=== PATIENT | male | born 1930 | race Caucasian/White ===

== ENCOUNTER 2016-12-13 19:53 | Inpatient (IN) | payer MEDICARE, OTHER ==
[~2016-12-13] VITALS: Ht 188 cm; Wt 81.8 kg
[2016-12-13 21:00] VITALS: BP 204/94; PULSE 56; RESP 16; Ht 188 cm; Wt 81.8 kg
[2016-12-13] MEDS ORDERED: BISACODYL 10 MG SUPP PR PRN (23:30)
[2016-12-13] MEDS ORDERED: ACETAMINOPHEN 325 MG TAB PO PRN (23:30)
[2016-12-13 23:40] VITALS: BP 217/94; PULSE 54; RESP 16
[2016-12-13] MEDS: ATORVASTATIN 40 MG TAB PO SCH (23:41)
[2016-12-13] MEDS: DOCUSATE SODIUM 100 MG CAP PO SCH (23:41)
[2016-12-13] MEDS: APIXABAN 5 MG TABLET PO SCH (23:42)
[2016-12-13] MEDS: SENNA TAB PO SCH (23:43)
[2016-12-13 23:59] LABS: ADD UMIC YES; UR ASCORBIC ACID NEGATIVE (NEGATIVE); UR BILIRUBIN (Dip) NEGATIVE (NEGATIVE); UR BLOOD (Dip) NEGATIVE (NEGATIVE); UR CLARITY CLEAR (CLEAR); UR COLOR STRAW (YELLOW); UR GLUCOSE (Dip) NEGATIVE (NEGATIVE); UR KETONES (Dip) NEGATIVE (NEGATIVE); UR LEUKOCYTE ESTERASE (Dip) NEGATIVE Leu/ul (NEGATIVE); UR NITRITE (Dip) NEGATIVE (NEGATIVE); UR RBC 2 /HPF (0-5); UR SPECIFIC GRAVITY (Dip) 1.009 (1.003-1.030); UR TOTAL PROTEIN (Dip) 1+ mg/dl (NEGATIVE); UR UROBILINOGEN (Dip) NEGATIVE (NEGATIVE)
[2016-12-14] VITALS (9 sets, daily range): BP systolic 158–206; BP diastolic 71–91; PULSE 52–64; RESP 16–20
[2016-12-14 06:27] LABS: BASOPHIL # 0.1 10^3/ul (0.0-0.1); BASOPHILS % 1.3 % (0.0-2.0); EOSINOPHILS # 0.2 10^3/ul (0.0-0.5); EOSINOPHILS % 3.8 % (0.0-7.0); HEMATOCRIT 28.1 % (42.0-52.0); HEMOGLOBIN 9.2 g/dl (14.0-18.0); LYMPHOCYTES # 0.9 10^3/ul (0.8-2.9); MEAN CORPUSCULAR HEMOGLOBIN 30.8 pg (29.0-33.0); MEAN CORPUSCULAR HGB CONC 32.7 g/dl (32.0-37.0); MEAN PLATELET VOLUME 10.4 fl (7.4-10.4); MONOCYTE # 0.6 10^3/ul (0.3-0.9); MONOCYTES % 12.2 % (0.0-11.0); NEUTROPHIL # 2.9 10^3/ul (1.6-7.5); NEUTROPHILS % 63.3 % (39.0-77.0); PLATELET COUNT 128 10^3/UL (140-415); RED BLOOD COUNT 2.99 10^6/ul (4.70-6.10); WHITE BLOOD COUNT 4.5 10^3/ul (4.8-10.8)
[2016-12-14 06:50] LABS: ALBUMIN 3.2 g/dl (3.3-4.9); ALBUMIN/GLOBULIN RATIO 1.33; BILIRUBIN,INDIRECT 0.1 mg/dl (0-1.1); BILIRUBIN,TOTAL 0.1 mg/dl (0.2-1.3); CREATININE 2.28 mg/dl (0.61-1.24); POTASSIUM 4.1 mmol/L (3.5-5.1); TOTAL PROTEIN 5.6 g/dl (6.1-8.1)
[2016-12-14] MEDS: LEVOTHYROXINE 25 MCG TAB PO SCH (07:03)
[2016-12-14] MEDS ORDERED: CO Q10 PO SCH ×2 (09:00)
[2016-12-14] MEDS: FINASTERIDE 5 MG TAB PO SCH (09:00)
[2016-12-14] MEDS: CALCITRIOL 0.25 MCG CAP PO SCH (09:00)
[2016-12-14] MEDS: ATENOLOL 25 MG TAB PO SCH (09:00)
[2016-12-14] MEDS: CHOLECALCIFEROL 2,000 UNIT CAP PO SCH (09:00)
[2016-12-14] MEDS: AMLODIPINE 10 MG TAB PO SCH (09:00)
[2016-12-14] MEDS: DOCUSATE SODIUM 100 MG CAP PO SCH ×2 (09:57→20:31)
[2016-12-14] MEDS: APIXABAN 5 MG TABLET PO SCH ×2 (09:58→22:09)
[2016-12-14] MEDS: HYDROCHLOROTHIAZIDE 12.5 MG CAP PO SCH (09:59)
--- NOTE | 2016-12-14 10:20 | HP ---
DATE OF ADMISSION: 12/13/2016 CHIEF COMPLAINT: Acute cerebrovascular accident with right-sided weakness. HISTORY OF PRESENT ILLNESS: This is an 86-year-old male with a past medical history of chronic kidn ey disease, history of hypertension, history of BPH who presented to [facility] with com plaints of right upper extremity weakness. The patient, upon presentation, was noted to have a pers istent right hemiparesis, greater weakness in right upper extremity than lower. The patient was adm itted to [facility]. Neurologic workup included MRI which revealed multiple lacun ar type infarcts of the focal area, acute infarct in the left parietal region with a restricted diff usion. The patient was seen inpatient by a neurologist. The patient also, in hospital course, note d to have acute kidney injury on top of his underlying CKD and was followed by nephrology. The leslie ent, during the hospital course, also noted to have a DVT of his lower extremity, he was placed on a nticoagulation therapy. The patient was seen by oncology in the inpatient setting. Tamoxifen, whic h he had been taking for his underlying breast cancer, was discontinued. The patient, however, had a significant decrease in premorbid state prior to his admission, as a result was being transferred to [facility] for continued care. Upon my evaluation of the patient at this time, the patient noted to be hypertensive overnight, was given hydralazine and clonidine. The patient currently denies any fevers, chills, nausea, vomiting. PAST MEDICAL HISTORY: History of breast cancer status post mastectomy, history of chronic kidney di sease, history of anemia, history of AFib, history of BPH, history of duodenal ulcer, history of hyp ertension, history of thyroid disease. PAST SURGICAL HISTORY: The patient is status post mastectomy. ALLERGIES: PATIENT IS ALLERGIC TO PENICILLIN. FAMILY HISTORY: None. SOCIAL HISTORY: Does not drink, smoke or do drugs. MEDICATIONS: The patient's medications have been reviewed and reconciled. REVIEW OF SYSTEMS: A 14-point review of systems was conducted. Pertinent positives stated in HPI, otherwise negative. PHYSICAL EXAMINATION: VITAL SIGNS: Blood pressure is 158/71, respirations 16, pulse 54, temperature 97.5. HEENT: Head is normocephalic. NECK: Supple. HEART: Regular rate. LUNGS: Show diminished breath sounds at the base. ABDOMEN: Soft, nontender to palpation without rebound or guarding. EXTREMITIES: Negative for clubbing, cyanosis, no edema. DERMATOLOGIC: No rashes. MUSCULOSKELETAL: No joint effusions. NEUROLOGIC: No change in exam. MEDICATIONS: The patient's medications have been reviewed. LABORATORY DATA: Shows a sodium 144, potassium 4.1, BUN 40, creatinine 2.28, white count 4.5, hemog lobin 9.2, hematocrit 28.1, platelet count is 128. ASSESSMENT AND PLAN: This is an 86-year-old male who presents with: 1. Acute cerebrovascular accident on the left parietal area with right-sided weakness. Plan is to continue current medical management. Continue current blood pressure controlled. Continue Eliquis. Continue Lipitor. Continue physical therapy. Monitor closely. 2. Acute lower extremity deep venous thrombosis. Continue Eliquis. 3. Hypertension. The patient's blood pressure remained elevated. Will adjust blood pressure medic ations and allow for a gradual decline and blood pressure. The patient did have acute cerebrovascul ar accident and permissive hypertension is allowed in the first several days. Will monitor closely. 4. Atrial fibrillation, currently rate controlled. Continue medical management. Continue atenolol and Eliquis. 5. Benign prostatic hypertrophy. Continue Proscar. 6. Dyslipidemia. Continue statin therapy. 7. History of duodenal ulcer. Continue Protonix. 8. Hypothyroidism. Continue Synthroid. 9. Acute kidney injury on top of chronic kidney disease with unknown previous baseline creatinine. Etiology of acute kidney injury may be secondary to hemodynamics etiology of chronic kidney disease possibly due to hypertensive nephrosclerosis. Will continue to monitor renal function closely. Co ntinue supportive care, renally dose all medications, avoid nephrotoxins. 10. Mineral bone disorder. Continue Calcitriol. 11. Anemia. Monitor hemoglobin and hematocrit levels. Will give Epogen as needed. 12. Thrombocytopenia. Continue to monitor. 13. History of breast cancer status post mastectomy. The patient is currently off tamoxifen. Will monitor closely. Follow up with oncology outpatient setting. 14. Leukopenia and thrombocytopenia. Continue to monitor. Please note I spent up to 25 minutes [id number] time with the patient. The patient is FULL CODE. Dictated By: BAM WALKER/SHYANNE Conf#: [id number] DID#: [id number]
--- NOTE | 2016-12-14 14:01 | CONS ---
DATE OF ADMISSION: 12/13/2016 DATE OF CONSULTATION: 12/14/2016 TYPE OF CONSULTATION: Rehabilitation post-admission physician evaluation. REHABILITATION IMPAIRMENT CATEGORY: Left basal ganglia infarct cerebrovascular accident with right-sided weakness. ACTIVE COMORBIDITIES: 1. Anemia. 2. Atrial fibrillation. 3. BPH. 4. Duodenal ulcer. 5. Hypertension. 6. Hyperlipidemia. 7. Retinae disorder. 8. Thyroid dysfunction. 9. Dysphagia. 10. Left lower extremity deep venous thrombosis. 11. Impairments in self-care, mobility and cognition. HISTORY OF PRESENT ILLNESS: The patient is a pleasant 86-year-old right-handed gentleman who was admitted to an outside hospital with increased right-sided weakness and impairments in self-care and mobility. Workup did reveal left parietal basal ganglia lacunar infarct. The patient was also noted to have a left lower extremity deep venous thrombosis and started on anticoagulation. The patient was stabilized and cleared for transfer to the rehabilitation unit for comprehensive interdisciplinary rehab care. PAST MEDICAL HISTORY: 1. Duodenal ulcer. 2. Hypertension. 3. Hyperlipidemia. 4. BPH. 5. Retinal disorder. 6. Thyroid dysfunction. CURRENT MEDICATIONS: 1. Eliquis 1 tab p.o. b.i.d. 2. Hydralazine p.r.n. 3. Atenolol 12.5 mg p.o. daily. 4. Atorvastatin 40 mg p.o. at bedtime. 5. Cholecalciferol 2000 units p.o. daily. 6. Co-Q10 p.o. b.i.d. 7. Colace 200 mg p.o. b.i.d. 8. Hydrochlorothiazide 12.5 mg p.o. daily. 9. Levothyroxine 25 mcg p.o. daily. 10. Protonix 40 mg p.o. at bedtime. ALLERGIES: PENICILLIN. PHYSICAL EXAMINATION: VITAL SIGNS: He is currently afebrile with stable vital signs. HEENT: The extraocular motions appear intact. Oropharynx clear. NECK: Supple. LUNGS: Clear anteriorly. CARDIAC: S1, S2. ABDOMEN: Soft, nontender, positive bowel sounds. NEUROLOGIC: He is awake and alert. He is oriented to person and hospital. He will follow simple 1-step commands. He does have impaired short-term memory. He demonstrates antigravity strength in left upper and lower extremity. The right upper extremity with 3- strength, the right lower extremity with antigravity strength. Patient with impaired dynamic balance. PLAN: The patient has been admitted for comprehensive interdisciplinary acute rehab and is anticipated to tolerate 3 hours of daily therapy in divided doses for at least 5/7 days a week. The treatment plan will include: 1. Physical therapy to focus on bed mobility, transfers, and household ambulation with the goal of having the patient reach a standby assist level. 2. Occupational therapy to focus on hygiene, grooming, dressing, bathing, and toileting activities with the goal of having the patient reach standby assist level. 3. Rehabilitation speech therapy for full cognitive assessment and retraining in addition to dysphagia management with the goal of having the patient meet nutritional needs by mouth and return to baseline cognition. 4. Rehabilitation nursing for carryover of therapeutic interventions with the goal of continent of bowel and bladder, and the goal of patient education with regards to the aforementioned issues. ESTIMATED LENGTH OF STAY: 14 days. DISPOSITION GOAL: Home. Rehabilitation Barrier: Weakness Intervention For Barrier: Interdisciplinary rehabilitation I acknowledge that I performed a full physical examination on this patient within 24 hours of admission to the rehabilitation unit and believe the patient is a good candidate for comprehensive interdisciplinary rehab care and is anticipated to make reasonable goals in a reasonable period of time as outlined above. Dictated By: JOVANNA ROLAND/SHYANNE Conf#: [id number] DID#: [id number] MTDD
[2016-12-14] MEDS: SENNA TAB PO SCH (20:31)
[2016-12-14] MEDS: ATORVASTATIN 40 MG TAB PO SCH (20:31)
[2016-12-14] MEDS: PANTOPRAZOLE (EC) 40 MG TAB PO SCH (23:41)
[2016-12-15 02:22] VITALS: BP 168/77; PULSE 54; RESP 16
[2016-12-15 04:29] VITALS: BP 135/64; PULSE 75; RESP 18
[2016-12-15 06:38] LABS: BASOPHIL # 0.1 10^3/ul (0.0-0.1); BASOPHILS % 1.3 % (0.0-2.0); EOSINOPHILS # 0.2 10^3/ul (0.0-0.5); EOSINOPHILS % 4.5 % (0.0-7.0); HEMATOCRIT 30.1 % (42.0-52.0); HEMOGLOBIN 10.1 g/dl (14.0-18.0); LYMPHOCYTES # 0.7 10^3/ul (0.8-2.9); LYMPHOCYTES % 15.2 % (15.0-51.0); MEAN CORPUSCULAR HEMOGLOBIN 31.6 pg (29.0-33.0); MEAN CORPUSCULAR HGB CONC 33.6 g/dl (32.0-37.0); MEAN CORPUSCULAR VOLUME 94.1 fl (82.0-101.0); MEAN PLATELET VOLUME 10.6 fl (7.4-10.4); MONOCYTE # 0.5 10^3/ul (0.3-0.9); MONOCYTES % 11.6 % (0.0-11.0); NEUTROPHIL # 3.1 10^3/ul (1.6-7.5); PLATELET COUNT 146 10^3/UL (140-415); RED CELL DISTRIBUTION WIDTH 12.8 % (11.5-14.5); WHITE BLOOD COUNT 4.7 10^3/ul (4.8-10.8)
[2016-12-15] MEDS: LEVOTHYROXINE 25 MCG TAB PO SCH (06:40)
[2016-12-15] MEDS: PANTOPRAZOLE (EC) 40 MG TAB PO SCH ×2 (06:40→18:00)
[2016-12-15 07:04] LABS: CALCIUM 8.3 mg/dl (8.4-10.2); CREATININE 2.23 mg/dl (0.61-1.24); MAGNESIUM 1.8 mg/dl (1.7-2.5); PHOSPHORUS 4.6 mg/dl (2.5-4.9); POTASSIUM 4.1 mmol/L (3.5-5.1)
[2016-12-15 08:00] VITALS: BP 144/76; PULSE 67; RESP 20
[2016-12-15] MEDS: CHOLECALCIFEROL 2,000 UNIT CAP PO SCH (09:10)
[2016-12-15] MEDS: FINASTERIDE 5 MG TAB PO SCH (09:10)
[2016-12-15] MEDS: APIXABAN 5 MG TABLET PO SCH ×2 (09:10→20:27)
[2016-12-15] MEDS: DOCUSATE SODIUM 100 MG CAP PO SCH ×2 (09:10→20:26)
[2016-12-15] MEDS: HYDROCHLOROTHIAZIDE 12.5 MG CAP PO SCH (09:10)
[2016-12-15] MEDS: AMLODIPINE 10 MG TAB PO SCH (09:11)
[2016-12-15] MEDS: ATENOLOL 25 MG TAB PO SCH (09:11)
[2016-12-15] MEDS: CALCITRIOL 0.25 MCG CAP PO SCH (09:11)
--- NOTE | 2016-12-15 09:26 | PN ---
DATE: 12/15/2016 SUBJECTIVE: The patient is stable, no events overnight. No fevers, chills, nausea, vomiting. OBJECTIVE: VITAL SIGNS: Blood pressure is 135/64, respirations 18, pulse 75, temperature 97.9. HEENT: Head is normocephalic. NECK: Supple. HEART: Regular rate. LUNGS: Show diminished breath sounds at base. ABDOMEN: Soft, nontender to palpation. No rebound or guarding. EXTREMITIES: Negative for clubbing, cyanosis, no edema. DERMATOLOGIC: No rashes. MUSCULOSKELETAL: No joint effusions. NEUROLOGIC: No change in exam. MEDICATIONS: The patient's medications have been reviewed. LABORATORY DATA: Sodium 142, potassium 4.1, BUN 42, creatinine 2.23. White count 12.7, hemoglobin 10.1, hematocrit 30.1, platelet count is 146. ASSESSMENT AND PLAN: 1. Acute cerebrovascular accident with parietal area with right-sided weakness. Continue current m edical management. Continue current blood pressure regimen. 2. Acute lower extremity deep venous thrombosis. Continue Eliquis. 3. Hypertension. The patient's blood pressures were adjusted. Continue to monitor. 4. Atrial fibrillation, rate controlled. Continue medical management. 5. Benign prostatic hypertrophy. Continue Proscar. 6. Dyslipidemia. Continue statin therapy. 7. History of duodenal ulcer. Continue Protonix. 8. Hypothyroidism. Continue Synthroid. 9. Nonoliguric acute kidney injury on top of chronic kidney disease with unknown baseline creatinin e. The patient's renal function appears to be stabilizing. We will continue current treatment plan , supportive care, renally dose all meds. 10. Deep venous thrombosis. Continue Calcitriol dose has been increased to monitor H and H levels. Will give Epogen as needed. 11. Thrombocytopenia. Continue to monitor. 12. History of breast cancer status post mastectomy, currently off tamoxifen. 13. Leukopenia and thrombocytopenia. Continue to observe. Dictated By: BAM WALKER/SHYANNE Conf#: [id number] DID#: [id number]
[2016-12-15] MEDS: ATORVASTATIN 40 MG TAB PO SCH (20:27)
[2016-12-15] MEDS: SENNA TAB PO SCH (20:27)
[2016-12-15 20:30] VITALS: BP 173/77; PULSE 57; RESP 18
[2016-12-15 22:00] VITALS: BP 175/72; PULSE 60
[2016-12-16] VITALS (7 sets, daily range): BP systolic 129–178; BP diastolic 65–81; PULSE 61–78; RESP 18–20
[2016-12-16] MEDS: PANTOPRAZOLE (EC) 40 MG TAB PO SCH ×2 (06:29→21:26)
[2016-12-16] MEDS: LEVOTHYROXINE 25 MCG TAB PO SCH (06:29)
[2016-12-16] MEDS: AMLODIPINE 10 MG TAB PO SCH (08:25)
[2016-12-16] MEDS: ATENOLOL 25 MG TAB PO SCH (08:25)
[2016-12-16] MEDS: HYDROCHLOROTHIAZIDE 12.5 MG CAP PO SCH (08:26)
[2016-12-16] MEDS: CHOLECALCIFEROL 2,000 UNIT CAP PO SCH (09:58)
[2016-12-16] MEDS: APIXABAN 5 MG TABLET PO SCH ×2 (09:58→21:26)
[2016-12-16] MEDS: FINASTERIDE 5 MG TAB PO SCH (09:58)
[2016-12-16] MEDS: DOCUSATE SODIUM 100 MG CAP PO SCH ×2 (09:58→21:26)
[2016-12-16] MEDS: CALCITRIOL 0.25 MCG CAP PO SCH (09:58)
--- NOTE | 2016-12-16 10:39 | CONS ---
Date/Time of Note Date/Time of Note DATE: 12/16/16 TIME: 10:36 Consult Date/Type/Reason Admit Date/Time Dec 13, 2016 at 19:53 Initial Consult Date Subjective Patient comfortable. Feeling better today Objective pulm-cta min assist Vital Signs Date Time Temp Pulse Resp B/P Pulse Ox O2 Delivery O2 Flow Rate FiO2 12/16/16 08:00 98.4 63 18 178/81 95 Room Air Intake and Output 12/15/16 12/15/16 12/16/16 15:00 23:00 07:00 Intake Total 500 ml 500 ml 740 ml Output Total 500 ml 300 ml 1100 ml Balance 0 ml 200 ml -360 ml Results/Medications Result Diagram: 12/15/1660412/15/16604 Medications Current Medications Apixaban (Eliquis) 5 mg BID PO Last administered on 12/16/16 09:58; Admin Dose 5 MG; Start 12/13/16 at 23:59 Hydralazine HCl (Apresoline) 50 mg Q6H PRN PO PRN Last administered on 02:21; Admin Dose 50 MG; Start 12/13/16 at 23:30 Atenolol (Tenormin) 12.5 mg DAILY PO Last administered on 12/16/16 08:25; Admin Dose 12.5 MG; Start 12/14/16 at 09:00 Atorvastatin Calcium (Lipitor) 40 mg DAILY@21 PO Last administered on 20:27; Admin Dose 40 MG; Start 12/13/16 at 23:20 Calcitriol (Rocaltrol) 0.25 mcg DAILY PO Last administered on 12/16/16 09:58; Admin Dose 0.25 MCG; Start 12/14/16 at 09:00 Cholecalciferol (Vitamin D) 2,000 unit DAILY PO Last administered on 12/16/16 09:58; Admin Dose 2,000 UNIT; Start 12/14/16 at 09:00 Docusate Sodium (Colace) 200 mg BID PO Last administered on 12/16/16 09:58; Admin Dose 200 MG; Start 12/13/16 at 23:21 Finasteride (Proscar) 5 mg DAILY PO Last administered on 12/16/16 09:58; Admin Dose 5 MG; Start 12/14/16 at 09:00 Hydrochlorothiazide (Hydrochlorothiazide) 12.5 mg DAILY PO Last administered on 12/16/16 08:26; Admin Dose 12.5 MG; Start 12/14/16 at 09:00 Pantoprazole (Protonix Tab) 40 mg BID@06,18 PO Last administered on 12/16/16 06:29; Admin Dose 40 MG; Start 12/14/16 at 23:23 Senna (Senokot) 1 tab HS PO Last administered on 12/15/16 20:27; Admin Dose 1 TAB; Start 12/13/16 at 23:59 Acetaminophen (Tylenol Tab) 650 mg Q4H PRN PO PAIN; Start 12/13/16 at 23:30 Bisacodyl (Dulcolax Supp) 10 mg DAILY PRN [place] CONSTIPATION; Start 12/13/16 at 23:30 Lactulose (Enulose) 20 gm DAILY PRN PO CONSTIPATION; Start 12/13/16 at 23:30 Clonidine (Catapres) 0.1 mg Q6H PRN PO ELEVATED BLOOD PRESSURE Last administered on 12/14/16 02:17; Admin Dose 0.1 MG; Start 12/14/16 at 01:30 Amlodipine Besylate (Norvasc) 10 mg DAILY PO Last administered on 12/16/16 08: 25; Admin Dose 10 MG; Start 12/14/16 at 09:00 Hydralazine HCl (Apresoline) 10 mg TID PO ; Start 12/16/16 at 13:00 Assessment/Plan Additional Assessment/Plan rehab-Left basal ganglia infarct cerebrovascular accident with right-sided weakness. Continue rehab program Anemia. Atrial fibrillation. BPH. Duodenal ulcer. Hypertension. Hyperlipidemia. Retinae disorder. Thyroid dysfunction. Dysphagia-continue speech therapy Left lower extremity deep venous thrombosis. JOVANNA JARAMILLO MD Dec 16, 2016 10:39
--- NOTE | 2016-12-16 13:01 | PN ---
DATE: 12/16/2016 SUBJECTIVE: The patient is stable. No events overnight. The patient is complaining of some swelli ng in his right leg. No other events noted. OBJECTIVE: VITAL SIGNS: Blood pressure is 178/81, respiration is 18, pulse 63, temperature 98.4. HEENT: Head is normocephalic. NECK: Supple. HEART: Regular rate. LUNGS: Show diminished breath sounds at base. ABDOMEN: Soft, nontender to palpation. No rebound or guarding. EXTREMITIES: Negative for clubbing, cyanosis. Trace edema. DERMATOLOGIC: No rashes. MUSCULOSKELETAL: No joint effusions. NEUROLOGIC: No change in exam. MEDICATIONS: The patient's medications have been reviewed. LABORATORY DATA: Has been reviewed. No new labs. ASSESSMENT AND PLAN: 1. Acute cerebrovascular accident with right-sided weakness. The patient is currently stable. Con darrellue current medical management. 2. Acute lower extremity deep venous thrombosis. Continue Eliquis. 3. Lower extremity swelling may be secondary to DVT, possible calcium channel effect. Continue to monitor. Consider Doppler lower extremity ultrasound. 4. Hypertension. The patient currently allowing for permissive hypertension given acute CVA. Blo od pressure medications were adjusted. Will continue to further adjust medications with goal systol ic pressures less than 150. 5. Atrial fibrillation, rate controlled. Continue current treatment plan. 6. Benign prostatic hypertrophy and Proscar. 7. Dyslipidemia. Continue statin therapy. 8. History of duodenal ulcer. Continue Protonix. 9. Hypothyroidism. Continue Synthroid. 10. Nonoliguric acute kidney injury on top of chronic kidney disease with unknown baseline creatini ne. Renal function appears to be stabilized. Continue current treatment plan, supportive care, pan ally dose medications. 11. Mineral bone disorder. Continue to monitor calcium and phosphorus levels. 12. Anemia. Monitor hemoglobin and hematocrit levels. 13. Thrombocytopenia. Continue to monitor. 14. History of breast cancer status post mastectomy, currently status post tamoxifen. 15. Leukopenia and thrombocytopenia. Continue to monitor. Dictated By: BAM WALEKR/SHYANNE Conf#: [id number] DID#: [id number]
[2016-12-16] MEDS: ATORVASTATIN 40 MG TAB PO SCH (21:26)
[2016-12-16] MEDS: SENNA TAB PO SCH (21:26)
[2016-12-17 02:00] VITALS: BP 128/71; RESP 18
[2016-12-17] MEDS: LEVOTHYROXINE 25 MCG TAB PO SCH (06:47)
[2016-12-17] MEDS: PANTOPRAZOLE (EC) 40 MG TAB PO SCH ×2 (06:47→17:31)
[2016-12-17 07:00] VITALS: BP 175/75; RESP 18
[2016-12-17 07:58] LABS: CALCIUM 8.2 mg/dl (8.4-10.2); CREATININE 2.46 mg/dl (0.61-1.24); MAGNESIUM 1.9 mg/dl (1.7-2.5); PHOSPHORUS 4.2 mg/dl (2.5-4.9); POTASSIUM 4.5 mmol/L (3.5-5.1)
--- NOTE | 2016-12-17 09:15 | RADRPT ---
PROCEDURE: US Lower extremity Venous. CLINICAL INDICATION: Bilateral lower extremity edema , history of left leg DVT TECHNIQUE: Multiple sonographic images of the bilateral lower extremity deep venous system was obt ained utilizing grayscale, color-flow, compressive sonography and doppler imaging with augmentation. The images were reviewed on a PACS workstation. COMPARISON: None. FINDINGS: There is normal compressibility and flow within the bilateral common femoral, femoral , posterior ti bial and popliteal veins. RPTAT: AA IMPRESSION: No sonographic evidence for deep venous thrombosis. .Augusto Landeros MD, MD Date Time Electronically viewed and signed by .Augusto Landeros MD, on 12/17/2016 09:14 .S/
[2016-12-17] MEDS: CALCITRIOL 0.25 MCG CAP PO SCH (10:03)
[2016-12-17] MEDS: FINASTERIDE 5 MG TAB PO SCH (10:03)
[2016-12-17] MEDS: ATENOLOL 25 MG TAB PO SCH (10:04)
[2016-12-17] MEDS: DOCUSATE SODIUM 100 MG CAP PO SCH ×2 (10:04→21:18)
[2016-12-17] MEDS: APIXABAN 5 MG TABLET PO SCH ×2 (10:05→21:18)
[2016-12-17] MEDS: AMLODIPINE 10 MG TAB PO SCH (10:05)
[2016-12-17] MEDS: CHOLECALCIFEROL 2,000 UNIT CAP PO SCH (10:05)
[2016-12-17] MEDS: HYDROCHLOROTHIAZIDE 12.5 MG CAP PO SCH (10:06)
--- NOTE | 2016-12-17 10:23 | PN ---
DATE: 12/17/2016 SUBJECTIVE: The patient is stable. He is complaining of swelling in his lower extremities, no othe r events noted. OBJECTIVE: VITAL SIGNS: Blood pressure is 125/71, temperature 98.1, pulse 53, respirations 18. HEENT: Head is normocephalic. NECK: Supple. HEART: Regular rate. LUNGS: Show diminished breath sounds at the base. ABDOMEN: Soft, nontender to palpation without rebound or guarding. EXTREMITIES: Negative for clubbing, cyanosis. Trace edema. DERMATOLOGIC: No rashes. MUSCULOSKELETAL: No joint effusions. NEUROLOGIC: No change in exam. MEDICATIONS: The patient's medications have been reviewed. LABORATORY DATA: Showed sodium 141, potassium 4.5, BUN 43, creatinine 2.46. White count 4.7, hemog lobin 10.1, hematocrit 30.1, platelet count is 146. ASSESSMENT AND PLAN: 1. Acute cerebrovascular accident with right-sided weakness. The patient is currently stable. Con tinue physical therapy. 2. Acute lower extremity deep venous thrombosis. Continue Eliquis. 3. Bilateral lower extremity swelling, etiology may be secondary to DVT or calcium channel . We will check a Doppler ultrasound. Continue Eliquis. 4. Hypertension. Blood pressures are elevated, but slowly improving. Continue current blood press ure regimen. Adjust medications as needed. 5. Atrial fibrillation, rate controlled. Continue current treatment plan. 6. Benign prostatic hypertrophy. Continue Proscar. 7. Dyslipidemia. Continue statin therapy. 8. History of duodenal ulcer. Continue Protonix. 9. Hypothyroidism. Continue Synthroid. 10. Nonoliguric acute kidney injury on top of chronic kidney disease with unknown baseline creatini ne. The patient's renal function appears to be fluctuating between a creatinine of 2 to 2.4 mg ____ _, monitor closely to avoid hypotensive episodes. 11. Mineral bone disorder. Monitor calcium and phosphorus levels. 12. Anemia. Monitor hemoglobin and hematocrit levels. 13. History of breast cancer status post tamoxifen. 14. Leukopenia. Continue to monitor. 15. Thrombocytopenia, improved. Dictated By: BAM WALKER/NTS Conf#: [id number] DID#: [id number]
--- NOTE | 2016-12-17 13:10 | CONS ---
Date/Time of Note Date/Time of Note DATE: 12/17/16 TIME: 13:07 Consult Date/Type/Reason Admit Date/Time Dec 13, 2016 at 19:53 Subjective Reports he had a noisy roommate yesterday Objective min assist transfer and ambulation pulm- cta Vital Signs Date Time Temp Pulse Resp B/P Pulse Ox O2 Delivery O2 Flow Rate FiO2 12/17/16 07:00 98.1 53 18 175/75 96 12/16/16 20:35 Room Air Intake and Output 12/16/16 12/16/16 12/17/16 15:00 23:00 07:00 Intake Total 860 ml 690 ml Output Total 450 ml 350 ml Balance 410 ml 340 ml Results/Medications Result Diagram: 12/15/16 0605 12/17/16 0638 Results 24 hrs Laboratory Tests Test 12/17/16 06:38 Sodium Level 141 Potassium Level 4.5 Chloride Level 110 Carbon Dioxide Level 26 Anion Gap 10 Blood Urea Nitrogen 43 H Creatinine 2.46 H Glucose Level 89 Calcium Level 8.2 L Phosphorus Level 4.2 Magnesium Level 1.9 Medications Current Medications Apixaban (Eliquis) 5 mg BID PO Last administered on 12/17/16 10:05; Admin Dose 5 MG; Start 12/13/16 at 23:59 Hydralazine HCl (Apresoline) 50 mg Q6H PRN PO PRN Last administered on 02:21; Admin Dose 50 MG; Start 12/13/16 at 23:30 Atenolol (Tenormin) 12.5 mg DAILY PO Last administered on 12/17/16 10:04; Admin Dose 12.5 MG; Start 12/14/16 at 09:00 Atorvastatin Calcium (Lipitor) 40 mg DAILY@21 PO Last administered on 21:26; Admin Dose 40 MG; Start 12/13/16 at 23:20 Calcitriol (Rocaltrol) 0.25 mcg DAILY PO Last administered on 12/17/16 10:03; Admin Dose 0.25 MCG; Start 12/14/16 at 09:00 Cholecalciferol (Vitamin D) 2,000 unit DAILY PO Last administered on 12/17/16 10:05; Admin Dose 2,000 UNIT; Start 12/14/16 at 09:00 Docusate Sodium (Colace) 200 mg BID PO Last administered on 12/17/16 10:04; Admin Dose 200 MG; Start 12/13/16 at 23:21 Finasteride (Proscar) 5 mg DAILY PO Last administered on 12/17/16 10:03; Admin Dose 5 MG; Start 12/14/16 at 09:00 Hydrochlorothiazide (Hydrochlorothiazide) 12.5 mg DAILY PO Last administered on 12/17/16 10:06; Admin Dose 12.5 MG; Start 12/14/16 at 09:00 Pantoprazole (Protonix Tab) 40 mg BID@,18 PO Last administered on 12/17/16 06:47; Admin Dose 40 MG; Start 12/14/16 at 23:23 Senna (Senokot) 1 tab HS PO Last administered on 12/16/16 21:26; Admin Dose 1 TAB; Start 12/13/16 at 23:59 Acetaminophen (Tylenol Tab) 650 mg Q4H PRN PO PAIN; Start 12/13/16 at 23:30 Bisacodyl (Dulcolax Supp) 10 mg DAILY PRN [place] CONSTIPATION; Start 12/13/16 at 23:30 Lactulose (Enulose) 20 gm DAILY PRN PO CONSTIPATION; Start 12/13/16 at 23:30 Clonidine (Catapres) 0.1 mg Q6H PRN PO ELEVATED BLOOD PRESSURE Last administered on 12/17/16 00:09; Admin Dose 0.1 MG; Start 12/14/16 at 01:30 Amlodipine Besylate (Norvasc) 10 mg DAILY PO Last administered on 12/17/16 10: 05; Admin Dose 10 MG; Start 12/14/16 at 09:00 Hydralazine HCl (Apresoline) 10 mg TID PO Last administered on 12/17/16 12:48 ; Admin Dose 10 MG; Start 12/16/16 at 13:00 Assessment/Plan Additional Assessment/Plan rehab-Left basal ganglia infarct cerebrovascular accident with right-sided weakness. Continue rehab treatment plan Anemia. Atrial fibrillation. BPH. Duodenal ulcer. Hypertension. Hyperlipidemia. Retinae disorder. Thyroid dysfunction. Dysphagia-continue speech therapy Left lower extremity deep venous thrombosis. JOVANNA JARAMILLO MD Dec 17, 2016 13:10
[2016-12-17 20:00] VITALS: BP 135/69; RESP 18
[2016-12-17] MEDS: SENNA TAB PO SCH (21:00)
[2016-12-17] MEDS: ATORVASTATIN 40 MG TAB PO SCH (21:20)
[2016-12-18 02:00] VITALS: BP 130/72; RESP 18
[2016-12-18] MEDS: PANTOPRAZOLE (EC) 40 MG TAB PO SCH ×2 (06:27→17:36)
[2016-12-18] MEDS: LEVOTHYROXINE 25 MCG TAB PO SCH ×2 (06:27→09:21)
[2016-12-18 07:30] VITALS: BP 177/82; RESP 18
[2016-12-18 07:58] VITALS: BP 177/82; RESP 18
--- NOTE | 2016-12-18 09:08 | PN ---
DATE: 12/18/2016 SUBJECTIVE: The patient continues to complain of some mild lower extremity swelling. The patient's Doppler ultrasound was negative for DVT. No other acute events noted. OBJECTIVE: VITAL SIGNS: Blood pressure is 177/82, respiration 18, pulse 65, temperature 98.0. HEENT: Head is normocephalic. NECK: Supple. HEART: Regular rate. LUNGS: Show diminished breath sounds at base. ABDOMEN: Soft, nontender to palpation without rebound or guarding. EXTREMITIES: Negative for clubbing, cyanosis, no clubbing, cyanosis, trace edema. DERMATOLOGIC: No rashes. MUSCULOSKELETAL: No joint effusions. NEUROLOGIC: No change in exam. MEDICATIONS: The patient's medications have been reviewed. LABORATORY DATA: Has been reviewed. No new labs. IMAGING: Doppler ultrasound was negative for DVT. ASSESSMENT AND PLAN: 1. Acute cerebrovascular accident with right-sided weakness, currently stable. Continue physical t herapy. 2. Recently diagnosed lower extremity deep venous thrombosis. Repeat Doppler ultrasound is negativ e; however, we will continue the course of the Eliquis. 3. Bilateral lower extremity edema, possibly due to calcium channel effect or venous insufficiency. Doppler ultrasound was negative for acute deep venous thrombosis. 4. Hypertension. Blood pressure is slowly improving. Continue current blood pressure regimen. 5. Atrial fibrillation, rate controlled. Continue current treatment plan. Continue Eliquis. Cont inue atenolol. 6. Benign prostatic hypertrophy. Continue Proscar. 7. Deep venous thrombosis. Continue statin therapy. 8. History of duodenal ulcer. Continue Protonix. 9. Hypothyroidism. Continue Synthroid. 10. Nonoliguric acute kidney injury on top of chronic kidney disease. The patient's baseline creat inine appears to be around to 2 to 2.5 mg/dL. Renal function has been fluctuating. Continue to mon itor. 11. Mineral bone disorder. Monitor calcium and phosphorus levels. 12. Anemia. Monitor hemoglobin and hematocrit levels. 13. History of breast cancer status post amoxicillin. 14. Leukopenia. Continue to monitor. 15. Thrombocytopenia, improved. Dictated By: BAM WALKER/NTS Conf#: [id number] DID#: [id number]
[2016-12-18] MEDS: CALCITRIOL 0.25 MCG CAP PO SCH (09:20)
[2016-12-18] MEDS: APIXABAN 5 MG TABLET PO SCH ×2 (09:21→20:30)
[2016-12-18] MEDS: FINASTERIDE 5 MG TAB PO SCH (09:22)
[2016-12-18] MEDS: AMLODIPINE 10 MG TAB PO SCH (09:22)
[2016-12-18] MEDS: CHOLECALCIFEROL 2,000 UNIT CAP PO SCH (09:23)
[2016-12-18] MEDS: ATENOLOL 25 MG TAB PO SCH (09:23)
[2016-12-18] MEDS: DOCUSATE SODIUM 100 MG CAP PO SCH ×2 (09:23→20:29)
[2016-12-18] MEDS: HYDROCHLOROTHIAZIDE 12.5 MG CAP PO SCH (09:24)
--- NOTE | 2016-12-18 10:33 | RADRPT ---
PROCEDURE: US right upper extremity veins. CLINICAL INDICATION: Right arm pain and swelling. History of thrombus in the right upper extremity seen at and L side facility. TECHNIQUE: Multiple longitudinal and transverse images of the right upper extremity venous tree wa s obtained with andrew scale, pulsed Doppler, and color Doppler imaging. COMPARISON: None available FINDINGS: There is thrombosis of the right cephalic vein in the antecubital fossa and proximal forearm with la ck of flow and lack of compressibility. The right internal jugular, subclavian, axillary, brachial, basilic, radial, and ulnar veins are patent. There is normal flow with augmentation and compressibil ity throughout. There is no thrombus or occlusion. IMPRESSION: 1. Thrombosis of the right cephalic vein in the antecubital fossa and proximal forearm. 2. Otherwise unremarkable venous system of the right upper extremity with no other thrombus or occl usion. RPTAT: QQ .Phil Littlejohn MD, MD Date Time Electronically viewed and signed by .Phil Littlejohn MD, MD on 12/18/2016 10:32 .R/
--- NOTE | 2016-12-18 11:12 | CONS ---
Date/Time of Note Date/Time of Note DATE: 12/18/16 TIME: 11:11 Consult Date/Type/Reason Admit Date/Time Dec 13, 2016 at 19:53 Subjective Comfortable Objective pulm-cta cga/sba ambulation with FWW Vital Signs Date Time Temp Pulse Resp B/P Pulse Ox O2 Delivery O2 Flow Rate FiO2 12/18/16 07:58 98.0 65 18 177/82 97 12/16/16 20:35 Room Air Intake and Output 12/17/16 12/17/16 12/18/16 14:59 22:59 06:59 Intake Total 1200 ml 1050 ml Output Total 600 ml 600 ml Balance 600 ml 450 ml Results/Medications Result Diagram: 12/15/16 0605 12/17/16 0638 Medications Current Medications Apixaban (Eliquis) 5 mg BID PO Last administered on 12/18/16 09:21; Admin Dose 5 MG; Start 12/13/16 at 23:59 Hydralazine HCl (Apresoline) 50 mg Q6H PRN PO PRN Last administered on 17:30; Admin Dose 50 MG; Start 12/13/16 at 23:30 Atenolol (Tenormin) 12.5 mg DAILY PO Last administered on 12/18/16 09:23; Admin Dose 12.5 MG; Start 12/14/16 at 09:00 Atorvastatin Calcium (Lipitor) 40 mg DAILY@21 PO Last administered on 21:20; Admin Dose 40 MG; Start 12/13/16 at 23:20 Calcitriol (Rocaltrol) 0.25 mcg DAILY PO Last administered on 12/18/16 09:20; Admin Dose 0.25 MCG; Start 12/14/16 at 09:00 Cholecalciferol (Vitamin D) 2,000 unit DAILY PO Last administered on 12/18/16 09:23; Admin Dose 2,000 UNIT; Start 12/14/16 at 09:00 Docusate Sodium (Colace) 200 mg BID PO Last administered on 12/18/16 09:23; Admin Dose 200 MG; Start 12/13/16 at 23:21 Finasteride (Proscar) 5 mg DAILY PO Last administered on 12/18/16 09:22; Admin Dose 5 MG; Start 12/14/16 at 09:00 Hydrochlorothiazide (Hydrochlorothiazide) 12.5 mg DAILY PO Last administered on 12/18/16 09:24; Admin Dose 12.5 MG; Start 12/14/16 at 09:00 Pantoprazole (Protonix Tab) 40 mg BID@06,18 PO Last administered on 12/18/16 06:27; Admin Dose 40 MG; Start 12/14/16 at 23:23 Senna (Senokot) 1 tab HS PO Last administered on 12/16/16 21:26; Admin Dose 1 TAB; Start 12/13/16 at 23:59 Acetaminophen (Tylenol Tab) 650 mg Q4H PRN PO PAIN; Start 12/13/16 at 23:30 Bisacodyl (Dulcolax Supp) 10 mg DAILY PRN [place] CONSTIPATION; Start 12/13/16 at 23:30 Lactulose (Enulose) 20 gm DAILY PRN PO CONSTIPATION; Start 12/13/16 at 23:30 Clonidine (Catapres) 0.1 mg Q6H PRN PO ELEVATED BLOOD PRESSURE Last administered on 12/17/16 00:09; Admin Dose 0.1 MG; Start 12/14/16 at 01:30 Amlodipine Besylate (Norvasc) 10 mg DAILY PO Last administered on 12/18/16 09: 22; Admin Dose 10 MG; Start 12/14/16 at 09:00 Hydralazine HCl (Apresoline) 10 mg TID PO Last administered on 12/18/16 09:23 ; Admin Dose 10 MG; Start 12/16/16 at 13:00 Ropinirole HCl (Requip) 0.25 mg QHS PO ; Start 12/18/16 at 21:00 Assessment/Plan Additional Assessment/Plan rehab-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 Continue rehab therapies Anemia. Atrial fibrillation. BPH. Duodenal ulcer. Hypertension. Hyperlipidemia. Retinae disorder. Thyroid dysfunction. Dysphagia-continue speech therapy Left lower extremity deep venous thrombosis. JOVANNA JARAMILLO MD Dec 18, 2016 11:12
[2016-12-18 14:00] VITALS: BP 141/65; RESP 18
[2016-12-18] MEDS: LACTULOSE 30ML CUP PO PRN (15:53)
[2016-12-18 20:00] VITALS: BP 170/75; RESP 18
[2016-12-18] MEDS: ROPINIROLE 0.25 MG TAB PO SCH (20:30)
[2016-12-18] MEDS: SENNA TAB PO SCH (20:30)
[2016-12-18] MEDS: ATORVASTATIN 40 MG TAB PO SCH (20:30)
[2016-12-19] VITALS (7 sets, daily range): BP systolic 132–194; BP diastolic 68–79; RESP 18–20
[2016-12-19] MEDS: PANTOPRAZOLE (EC) 40 MG TAB PO SCH ×2 (06:24→17:48)
[2016-12-19] MEDS: LEVOTHYROXINE 25 MCG TAB PO SCH (06:24)
[2016-12-19 07:34] LABS: CALCIUM 8.1 mg/dl (8.4-10.2); CREATININE 2.66 mg/dl (0.61-1.24); PHOSPHORUS 4.6 mg/dl (2.5-4.9); POTASSIUM 4.4 mmol/L (3.5-5.1)
[2016-12-19] MEDS: CALCITRIOL 0.25 MCG CAP PO SCH (08:43)
[2016-12-19] MEDS: CHOLECALCIFEROL 2,000 UNIT CAP PO SCH (08:44)
[2016-12-19] MEDS: ATENOLOL 25 MG TAB PO SCH (08:44)
[2016-12-19] MEDS: APIXABAN 5 MG TABLET PO SCH ×2 (08:45→20:17)
[2016-12-19] MEDS: AMLODIPINE 10 MG TAB PO SCH (08:45)
[2016-12-19] MEDS: FINASTERIDE 5 MG TAB PO SCH (08:45)
[2016-12-19] MEDS: DOCUSATE SODIUM 100 MG CAP PO SCH ×2 (08:45→20:17)
[2016-12-19] MEDS: HYDROCHLOROTHIAZIDE 12.5 MG CAP PO SCH (08:46)
--- NOTE | 2016-12-19 09:33 | CONS ---
Date/Time of Note Date/Time of Note DATE: 12/19/16 TIME: 09:32 Consult Date/Type/Reason Admit Date/Time Dec 13, 2016 at 19:53 Subjective feels stronger, but frustrated with fine finger movement Objective pulm-cta cga ambulation Vital Signs Date Time Temp Pulse Resp B/P Pulse Ox O2 Delivery O2 Flow Rate FiO2 12/19/16 07:30 98.4 66 18 194/79 96 12/18/16 07:30 Room Air Intake and Output 12/18/16 12/18/16 12/19/16 15:00 23:00 07:00 Intake Total 1500 ml 800 ml Output Total 1300 ml Balance 200 ml 800 ml Results/Medications Result Diagram: 12/15/16 0605 12/19/16 0624 Results 24 hrs Laboratory Tests Test 12/19/16 06:24 Sodium Level 142 Potassium Level 4.4 Chloride Level 107 Carbon Dioxide Level 25 Anion Gap 14 Blood Urea Nitrogen 45 H Creatinine 2.66 H Glucose Level 90 Calcium Level 8.1 L Phosphorus Level 4.6 Magnesium Level 2.0 Medications Current Medications Apixaban (Eliquis) 5 mg BID PO Last administered on 12/19/16 08:45; Admin Dose 5 MG; Start 12/13/16 at 23:59 Hydralazine HCl (Apresoline) 50 mg Q6H PRN PO PRN Last administered on 17:30; Admin Dose 50 MG; Start 12/13/16 at 23:30 Atenolol (Tenormin) 12.5 mg DAILY PO Last administered on 12/19/16 08:44; Admin Dose 12.5 MG; Start 12/14/16 at 09:00 Atorvastatin Calcium (Lipitor) 40 mg DAILY@21 PO Last administered on 20:30; Admin Dose 40 MG; Start 12/13/16 at 23:20 Calcitriol (Rocaltrol) 0.25 mcg DAILY PO Last administered on 12/19/16 08:43; Admin Dose 0.25 MCG; Start 12/14/16 at 09:00 Cholecalciferol (Vitamin D) 2,000 unit DAILY PO Last administered on 12/19/16 08:44; Admin Dose 2,000 UNIT; Start 12/14/16 at 09:00 Docusate Sodium (Colace) 200 mg BID PO Last administered on 12/19/16 08:45; Admin Dose 200 MG; Start 12/13/16 at 23:21 Finasteride (Proscar) 5 mg DAILY PO Last administered on 12/19/16 08:45; Admin Dose 5 MG; Start 12/14/16 at 09:00 Hydrochlorothiazide (Hydrochlorothiazide) 12.5 mg DAILY PO Last administered on 12/19/16 08:46; Admin Dose 12.5 MG; Start 12/14/16 at 09:00 Pantoprazole (Protonix Tab) 40 mg BID@06,18 PO Last administered on 12/19/16 06:24; Admin Dose 40 MG; Start 12/14/16 at 23:23 Senna (Senokot) 1 tab HS PO Last administered on 12/18/16 20:30; Admin Dose 1 TAB; Start 12/13/16 at 23:59 Acetaminophen (Tylenol Tab) 650 mg Q4H PRN PO PAIN; Start 12/13/16 at 23:30 Bisacodyl (Dulcolax Supp) 10 mg DAILY PRN [place] CONSTIPATION; Start 12/13/16 at 23:30 Lactulose (Enulose) 20 gm DAILY PRN PO CONSTIPATION Last administered on 15:53; Admin Dose 20 GM; Start 12/13/16 at 23:30 Clonidine (Catapres) 0.1 mg Q6H PRN PO ELEVATED BLOOD PRESSURE Last administered on 12/19/16 08:45; Admin Dose 0.1 MG; Start 12/14/16 at 01:30 Amlodipine Besylate (Norvasc) 10 mg DAILY PO Last administered on 12/19/16 08: 45; Admin Dose 10 MG; Start 12/14/16 at 09:00 Hydralazine HCl (Apresoline) 10 mg TID PO Last administered on 12/19/16 08:44 ; Admin Dose 10 MG; Start 12/16/16 at 13:00 Ropinirole HCl (Requip) 0.25 mg QHS PO Last administered on 12/18/16 20:30; Admin Dose 0.25 MG; Start 12/18/16 at 21:00 Assessment/Plan Additional Assessment/Plan rehab-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 Excellent progress with rehab, continue treatment plan Anemia. Atrial fibrillation. BPH. Duodenal ulcer. Hypertension. Hyperlipidemia. Retinae disorder. Thyroid dysfunction. Dysphagia-continue speech therapy Left lower extremity deep venous thrombosis. JOVANNA JARAMILLO MD Dec 19, 2016 09:33
--- NOTE | 2016-12-19 11:26 | PN ---
DATE: 12/19/2016 SUBJECTIVE: The patient is stable. No events overnight. No fevers, chills, nausea, vomiting. Ericka jessica's restless leg symptoms have improved with ropinirole. No other events noted. OBJECTIVE: VITAL SIGNS: Blood pressure 132/68, respiration 18, pulse 75, temperature 98.3. HEENT: Head is normocephalic. NECK: Supple. HEART: Regular rate. LUNGS: Show diminished breath sounds at base. ABDOMEN: Soft, nontender to palpation. No rebound or guarding. EXTREMITIES: Negative for clubbing, cyanosis. Trace edema. DERMATOLOGIC: No rashes. MUSCULOSKELETAL: No joint effusions. NEUROLOGIC: No change in exam. MEDICATIONS: The patient's medications have been reviewed. LABORATORY DATA: Shows sodium 142, potassium 4.4, chloride 107, BUN 45, creatinine 2.66. ASSESSMENT AND PLAN: 1. Acute cerebrovascular accident with left-sided weakness, currently stable. Continue physical th erapy. 2. Right upper extremity deep venous thrombosis. Continue Eliquis. 3. Bilateral lower extremity edema, mild. Continue to monitor. 4. Hypertension. Continue current blood pressure regimen. 5. Atrial fibrillation, rate controlled. Continue current medical management. 6. Nonoliguric acute kidney injury on top of chronic kidney disease. Etiology of acute kidney inju ry appears to be hemodynamic. Renal function is fluctuating around 2 to 2.5 mg/dL, continue to sara tor closely, avoid hypotensive episodes. 7. Benign prostatic hypertrophy. Continue Proscar. 8. History of duodenal ulcer. Continue Protonix. 9. Hypothyroidism. Continue Synthroid. 10. Mineral bone disorder, monitor calcium and phosphorus levels. 11. Anemia, monitor hemoglobin and hematocrit levels. 12. History of breast cancer. 13. Leukopenia/thrombocytopenia. Continue to monitor. Dictated By: BAM WALKER/SHYANNE Conf#: [id number] DID#: [id number]
[2016-12-19] MEDS: LACTULOSE 30ML CUP PO PRN (12:26)
[2016-12-19] MEDS: ROPINIROLE 0.25 MG TAB PO SCH (20:17)
[2016-12-19] MEDS: ATORVASTATIN 40 MG TAB PO SCH (20:17)
[2016-12-19] MEDS: SENNA TAB PO SCH (20:17)
[2016-12-20 01:35] VITALS: BP 155/73; RESP 19
[2016-12-20] MEDS: PANTOPRAZOLE (EC) 40 MG TAB PO SCH ×2 (06:18→17:28)
[2016-12-20] MEDS: LEVOTHYROXINE 25 MCG TAB PO SCH (06:18)
[2016-12-20 07:00] VITALS: BP 190/79; RESP 18
[2016-12-20 07:44] LABS: BASOPHIL # 0.1 10^3/ul (0.0-0.1); BASOPHILS % 1.9 % (0.0-2.0); EOSINOPHILS # 0.2 10^3/ul (0.0-0.5); EOSINOPHILS % 4.8 % (0.0-7.0); HEMATOCRIT 29.8 % (42.0-52.0); HEMOGLOBIN 9.9 g/dl (14.0-18.0); LYMPHOCYTES # 0.9 10^3/ul (0.8-2.9); LYMPHOCYTES % 23.6 % (15.0-51.0); MEAN CORPUSCULAR HGB CONC 33.2 g/dl (32.0-37.0); MEAN CORPUSCULAR VOLUME 93.4 fl (82.0-101.0); MEAN PLATELET VOLUME 10.7 fl (7.4-10.4); MONOCYTE # 0.6 10^3/ul (0.3-0.9); MONOCYTES % 15.8 % (0.0-11.0); NEUTROPHILS % 53.6 % (39.0-77.0); PLATELET COUNT 171 10^3/UL (140-415); RED BLOOD COUNT 3.19 10^6/ul (4.70-6.10); RED CELL DISTRIBUTION WIDTH 12.5 % (11.5-14.5); WHITE BLOOD COUNT 3.7 10^3/ul (4.8-10.8)
[2016-12-20 08:06] LABS: CALCIUM 8.5 mg/dl (8.4-10.2); CREATININE 2.61 mg/dl (0.61-1.24); MAGNESIUM 2.1 mg/dl (1.7-2.5); PHOSPHORUS 4.5 mg/dl (2.5-4.9); POTASSIUM 4.4 mmol/L (3.5-5.1)
[2016-12-20] MEDS: APIXABAN 5 MG TABLET PO SCH ×2 (09:16→20:15)
[2016-12-20] MEDS: DOCUSATE SODIUM 100 MG CAP PO SCH ×2 (09:16→20:15)
[2016-12-20] MEDS: FINASTERIDE 5 MG TAB PO SCH (09:17)
[2016-12-20] MEDS: HYDROCHLOROTHIAZIDE 12.5 MG CAP PO SCH (09:17)
[2016-12-20] MEDS: NIFEdipine (XL) 30 MG TAB PO SCH ×2 (09:17→20:15)
[2016-12-20] MEDS: CHOLECALCIFEROL 2,000 UNIT CAP PO SCH (09:18)
[2016-12-20] MEDS: ATENOLOL 25 MG TAB PO SCH (09:18)
[2016-12-20] MEDS: CALCITRIOL 0.25 MCG CAP PO SCH (09:18)
[2016-12-20 20:00] VITALS: BP 145/67; RESP 18
[2016-12-20] MEDS: ROPINIROLE 0.25 MG TAB PO SCH (20:15)
[2016-12-20] MEDS: SENNA TAB PO SCH (20:15)
[2016-12-20] MEDS: ATORVASTATIN 40 MG TAB PO SCH (20:15)
[2016-12-21 02:00] VITALS: BP 182/86; RESP 18
[2016-12-21 02:48] VITALS: BP 182/86; RESP 18
[2016-12-21] MEDS: LEVOTHYROXINE 25 MCG TAB PO SCH (05:55)
[2016-12-21] MEDS: PANTOPRAZOLE (EC) 40 MG TAB PO SCH ×2 (05:56→18:00)
[2016-12-21 06:06] VITALS: BP 168/79; PULSE 54
[2016-12-21 07:00] VITALS: BP 160/62; RESP 18
--- NOTE | 2016-12-21 07:36 | PN ---
DATE: 12/20/2016 SUBJECTIVE: The patient is stable. No events overnight. No fevers, chills, nausea, vomiting. OBJECTIVE: VITAL SIGNS: Blood pressure is 155/73, respirations 19, pulse 56, temperature 98.3. HEENT: Head is normocephalic. NECK: Supple. HEART: Regular rate. LUNGS: Show diminished breath sounds at the base. ABDOMEN: Soft, nontender to palpation. No rebound or guarding. EXTREMITIES: Negative for clubbing, cyanosis. Trace edema on patient's right ankle. DERMATOLOGIC: No rashes. MUSCULOSKELETAL: No joint effusions. NEUROLOGIC: No change in exam. MEDICATIONS: The patient's medications have been reviewed. LABORATORY DATA: From 12/20/2016 is currently pending. Laboratory data from 12/19/2016 was noted. ASSESSMENT AND PLAN: 1. Acute cerebrovascular accident with right-sided weakness. The patient is clinically improving. Continue current treatment plan. Continue physical therapy. 2. Right upper extremity DVT. Continue Eliquis. 3. Lower extremity edema, mild. The patient's Doppler ultrasound was negative for DVT. We will ge t x-rays of the foot for further evaluation. 4. Hypertension. Blood pressure has been fluctuating. We will continue to adjust medications for better blood pressure control. 5. Atrial fibrillation, rate controlled. Continue medical management. 6. Nonoliguric acute kidney injury on top of chronic kidney disease. Etiology appears to be hemody namics. Renal function continues to fluctuate. Continue to monitor closely. Follow up renal panel . 7. BPH. Continue Proscar. 8. History of duodenal ulcer. Continue Protonix. 9. Hypothyroidism. Continue Synthroid. 10. Mineral bone disorder. Continue to monitor calcium and phosphorous levels. 11. Anemia. Monitor hemoglobin and hematocrit levels. 12. History of breast cancer. 13. Leukopenia and thrombocytopenia. Continue to monitor. Dictated By: BAM WALKER/SHYANNE Conf#: [id number] DID#: [id number]
--- NOTE | 2016-12-21 08:12 | PN ---
DATE: 12/21/2016 SUBJECTIVE: The patient is stable, no acute events overnight. The patient's lower extremity swelli ng has improved. OBJECTIVE: VITAL SIGNS: Blood pressure 182/86, respiration 18, pulse 68, temperature 97.7. HEENT: Head is normocephalic. NECK: Supple. HEART: Regular rate. LUNGS: Show diminished breath sounds at the base. ABDOMEN: Soft, nontender to palpation. No rebound or guarding. EXTREMITIES: Negative for clubbing, cyanosis, no edema. DERMATOLOGIC: No rashes. MUSCULOSKELETAL: No joint effusions. NEUROLOGIC: No focal deficits. MEDICATIONS: The patient's medications have been reviewed. LABORATORY DATA: Shows a sodium 139, potassium 4.4, BUN 45, creatinine 2.61. White count 3.7, hemo globin 9.9, hematocrit 29.8, platelet count is 171. ASSESSMENT AND PLAN: 1. Acute cerebrovascular accident with left-sided weakness. The patient is currently stable. Cont inue physical therapy. 2. Right upper extremity deep venous thrombosis. Continue Eliquis. 3. Bilateral lower extremity edema, improved. 4. Hypertension. Blood pressure remains elevated. We will adjust medications. Will increase hydr alazine 25 mg t.i.d., continue atenolol/hydrochlorothiazide Procardia. Will give p.r.n. clonidine a s needed. Monitor closely, avoid hypotensive episodes. 5. Atrial fibrillation, rate controlled. Continue current medical management. 6. Nonoliguric acute kidney injury on top of chronic kidney disease. Etiology of acute kidney inju ry secondary to hemodynamics. Renal function is fluctuating, but overall stable, continue to monito r. 7. Chronic kidney disease secondary to hypertensive nephrosclerosis. We will continue current [facility] management. Continue blood pressure control. Continue treatment of acute kidney injury as stat ed above. 8. Anemia. Monitor hemoglobin and hematocrit levels. 9. Mineral bone disorder. Monitor calcium and phosphorus levels. 10. Hypothyroidism. Continue Synthroid. 11. Benign prostatic hypertrophy. Continue Proscar. 12. History of breast cancer status leukopenia and thrombocytopenia. Continue to monitor. 13. Gastrointestinal and deep venous thrombosis prophylaxis. Continue proton pump inhibitor and El iquis. Dictated By: BAM WALKER/SHYANNE Conf#: [id number] DID#: [id number]
--- NOTE | 2016-12-21 09:05 | CONS ---
Date/Time of Note Date/Time of Note DATE: 12/21/16 TIME: 09:05 Consult Date/Type/Reason Admit Date/Time Dec 13, 2016 at 19:53 Objective Vital Signs Date Time Temp Pulse Resp B/P Pulse Ox O2 Delivery O2 Flow Rate FiO2 12/21/16 07:00 98.9 51 18 160/62 96 12/19/16 08:00 Room Air Intake and Output 12/20/16 12/20/16 12/21/16 14:59 22:59 06:59 Intake Total 1200 ml 300 ml Output Total 800 ml 950 ml Balance 400 ml -650 ml INTERDISCIPLINARY TEAM CONFERENCE BOWEL- Cont BLADDER-Cont SKIN- intact OT- DRESSING-sba BATHING-sba TOILETING-sba PT- BED MOBILITY-sba TRANSFERS-sba AMBULATION-sba SPEECH- COGNITION-DE A/P- Interdisciplinary team conference held today. Please see interdisciplinary sheet. Working toward d.c. on 12/25 with post discharge follow up of physical therapy, occupational therapy. Results/Medications Result Diagram: 12/20/1614 12/20/16 0614 Medications Current Medications Apixaban (Eliquis) 5 mg BID PO Last administered on 12/20/16 20:15; Admin Dose 5 MG; Start 12/13/16 at 23:59 Hydralazine HCl (Apresoline) 50 mg Q6H PRN PO PRN Last administered on 06:06; Admin Dose 50 MG; Start 12/13/16 at 23:30 Atenolol (Tenormin) 12.5 mg DAILY PO Last administered on 12/20/16 09:18; Admin Dose 12.5 MG; Start 12/14/16 at 09:00 Atorvastatin Calcium (Lipitor) 40 mg DAILY@21 PO Last administered on 20:15; Admin Dose 40 MG; Start 12/13/16 at 23:20 Calcitriol (Rocaltrol) 0.25 mcg DAILY PO Last administered on 12/20/16 09:18; Admin Dose 0.25 MCG; Start 12/14/16 at 09:00 Cholecalciferol (Vitamin D) 2,000 unit DAILY PO Last administered on 12/20/16 09:18; Admin Dose 2,000 UNIT; Start 12/14/16 at 09:00 Docusate Sodium (Colace) 200 mg BID PO Last administered on 12/20/16 20:15; Admin Dose 200 MG; Start 12/13/16 at 23:21 Finasteride (Proscar) 5 mg DAILY PO Last administered on 12/20/16 09:17; Admin Dose 5 MG; Start 12/14/16 at 09:00 Hydrochlorothiazide (Hydrochlorothiazide) 12.5 mg DAILY PO Last administered on 12/20/16 09:17; Admin Dose 12.5 MG; Start 12/14/16 at 09:00 Pantoprazole (Protonix Tab) 40 mg BID@,18 PO Last administered on 12/21/16 05:56; Admin Dose 40 MG; Start 12/14/16 at 23:23 Senna (Senokot) 1 tab HS PO Last administered on 12/20/16 20:15; Admin Dose 1 TAB; Start 12/13/16 at 23:59 Acetaminophen (Tylenol Tab) 650 mg Q4H PRN PO PAIN; Start 12/13/16 at 23:30 Bisacodyl (Dulcolax Supp) 10 mg DAILY PRN [place] CONSTIPATION; Start 12/13/16 at 23:30 Lactulose (Enulose) 20 gm DAILY PRN PO CONSTIPATION Last administered on 12:26; Admin Dose 20 GM; Start 12/13/16 at 23:30 Clonidine (Catapres) 0.1 mg Q6H PRN PO ELEVATED BLOOD PRESSURE Last administered on 12/21/16 02:48; Admin Dose 0.1 MG; Start 12/14/16 at 01:30 Nifedipine (Procardia Xl) 30 mg BID PO Last administered on 12/20/16 20:15; Admin Dose 30 MG; Start 12/20/16 at 09:00 Ropinirole HCl (Requip) 0.25 mg 18 PO ; Start 12/21/16 at 18:00 Hydralazine HCl (Apresoline) 25 mg TID PO ; Start 12/21/16 at 09:00 JOVANNA JARAMILLO MD Dec 21, 2016 09:05
[2016-12-21] MEDS: APIXABAN 5 MG TABLET PO SCH ×2 (09:25→21:45)
[2016-12-21] MEDS: ATENOLOL 25 MG TAB PO SCH (09:25)
[2016-12-21] MEDS: HYDROCHLOROTHIAZIDE 12.5 MG CAP PO SCH (09:25)
[2016-12-21] MEDS: CALCITRIOL 0.25 MCG CAP PO SCH (09:25)
[2016-12-21] MEDS: DOCUSATE SODIUM 100 MG CAP PO SCH ×2 (09:26→21:45)
[2016-12-21] MEDS: FINASTERIDE 5 MG TAB PO SCH (09:26)
[2016-12-21] MEDS: NIFEdipine (XL) 30 MG TAB PO SCH ×2 (09:26→21:45)
[2016-12-21] MEDS: CHOLECALCIFEROL 2,000 UNIT CAP PO SCH (09:26)
[2016-12-21] MEDS: ROPINIROLE 0.25 MG TAB PO SCH (18:00)
[2016-12-21 19:45] VITALS: BP 139/61; PULSE 57; RESP 18
[2016-12-21] MEDS: ATORVASTATIN 40 MG TAB PO SCH (21:45)
[2016-12-21] MEDS: SENNA TAB PO SCH (21:45)
[2016-12-22 02:00] VITALS: BP 145/75; PULSE 60; RESP 17
[2016-12-22] MEDS: LEVOTHYROXINE 25 MCG TAB PO SCH (06:19)
[2016-12-22] MEDS: PANTOPRAZOLE (EC) 40 MG TAB PO SCH ×2 (06:19→17:42)
[2016-12-22 07:30] VITALS: BP_SYST 157; BP_SYST 159; BP_DIAS 72; PULSE 65; RESP 18
[2016-12-22] MEDS: CALCITRIOL 0.25 MCG CAP PO SCH (08:52)
[2016-12-22] MEDS: APIXABAN 5 MG TABLET PO SCH ×2 (08:52→20:42)
[2016-12-22] MEDS: DOCUSATE SODIUM 100 MG CAP PO SCH ×2 (08:52→20:43)
[2016-12-22] MEDS: CHOLECALCIFEROL 2,000 UNIT CAP PO SCH (08:52)
[2016-12-22] MEDS: FINASTERIDE 5 MG TAB PO SCH (08:52)
[2016-12-22] MEDS: ATENOLOL 25 MG TAB PO SCH (08:53)
[2016-12-22] MEDS: HYDROCHLOROTHIAZIDE 12.5 MG CAP PO SCH (08:54)
[2016-12-22] MEDS: NIFEdipine (XL) 30 MG TAB PO SCH ×2 (08:54→20:43)
--- NOTE | 2016-12-22 10:27 | PN ---
DATE: 12/22/2016 SUBJECTIVE: The patient is noted to have a hypotensive episode overnight. No other acute events no gale. No hemoptysis, hematemesis or hematochezia. OBJECTIVE: VITAL SIGNS: Blood pressure is currently 145/75, respirations 17, pulse 60, temperature 98.3. HEENT: Head is normocephalic. NECK: Supple. HEART: Regular rate. LUNGS: Show diminished breath sounds at the base. ABDOMEN: Soft, nontender to palpation. No rebound or guarding. EXTREMITIES: Negative for clubbing, cyanosis, no edema. DERMATOLOGIC: No rashes. MUSCULOSKELETAL: No joint effusions. NEUROLOGIC: No change in exam. MEDICATIONS: Have been reviewed. LABORATORY DATA: Has been reviewed. No new labs this morning. ASSESSMENT AND PLAN: 1. Acute cerebrovascular accident with left-sided weakness. The patient is currently stable and sl owly improving. Continue to monitor. 2. Right upper extremity deep venous thrombosis. Continue Eliquis. 3. Hypertension. The patient's blood pressures are slowly improving. Continue current blood press ure regimen. We will place parameters on medications to avoid hypotensive episodes. 4. Atrial fibrillation, rate controlled. Continue medical management. 5. Nonoliguric acute kidney injury on top of chronic kidney disease, etiology secondary to hemodyna mics. Renal function has been fluctuating but overall stable, continue to monitor closely. 6. Chronic kidney disease secondary to hypertensive nephrosclerosis. Continue current medical cristiane gement. Continue good blood pressure control, disease factor modification. 7. Anemia. Monitor hemoglobin and hematocrit levels. 8. Mineral bone disorder. Monitor calcium and phosphorus levels. 9. Hypothyroidism. Continue Synthroid. 10. Benign prostatic hypertrophy. Continue Proscar. 11. History of breast cancer. 12. Gastrointestinal and deep venous thrombosis prophylaxis. Dictated By: BAM WALKER/SHYANNE Conf#: [id number] DID#: [id number]
--- NOTE | 2016-12-22 12:06 | CONS ---
Date/Time of Note Date/Time of Note DATE: 12/22/16 TIME: 12:05 Consult Date/Type/Reason Admit Date/Time Dec 13, 2016 at 19:53 Subjective up for activities Objective sba ambulation with PT Vital Signs Date Time Temp Pulse Resp B/P Pulse Ox O2 Delivery O2 Flow Rate FiO2 12/22/16 07:30 98.5 55 18 157/72 96 12/22/16 02:00 Room Air Intake and Output 12/21/16 12/21/16 12/22/16 15:00 23:00 07:00 Intake Total 700 ml Balance 700 ml Results/Medications Result Diagram: 12/20/1614 12/20/16613 Medications Current Medications Apixaban (Eliquis) 5 mg BID PO Last administered on 12/22/16 08:52; Admin Dose 5 MG; Start 12/13/16 at 23:59 Hydralazine HCl (Apresoline) 50 mg Q6H PRN PO PRN Last administered on 06:06; Admin Dose 50 MG; Start 12/13/16 at 23:30 Atenolol (Tenormin) 12.5 mg DAILY PO Last administered on 12/22/16 08:53; Admin Dose 12.5 MG; Start 12/14/16 at 09:00 Atorvastatin Calcium (Lipitor) 40 mg DAILY@21 PO Last administered on 21:45; Admin Dose 40 MG; Start 12/13/16 at 23:20 Calcitriol (Rocaltrol) 0.25 mcg DAILY PO Last administered on 12/22/16 08:52; Admin Dose 0.25 MCG; Start 12/14/16 at 09:00 Cholecalciferol (Vitamin D) 2,000 unit DAILY PO Last administered on 12/22/16 08:52; Admin Dose 2,000 UNIT; Start 12/14/16 at 09:00 Docusate Sodium (Colace) 200 mg BID PO Last administered on 12/22/16 08:52; Admin Dose 200 MG; Start 12/13/16 at 23:21 Finasteride (Proscar) 5 mg DAILY PO Last administered on 12/22/16 08:52; Admin Dose 5 MG; Start 12/14/16 at 09:00 Hydrochlorothiazide (Hydrochlorothiazide) 12.5 mg DAILY PO Last administered on 12/22/16 08:54; Admin Dose 12.5 MG; Start 12/14/16 at 09:00 Pantoprazole (Protonix Tab) 40 mg BID@,18 PO Last administered on 12/22/16 06:19; Admin Dose 40 MG; Start 12/14/16 at 23:23 Senna (Senokot) 1 tab HS PO Last administered on 12/21/16 21:45; Admin Dose 1 TAB; Start 12/13/16 at 23:59 Acetaminophen (Tylenol Tab) 650 mg Q4H PRN PO PAIN; Start 12/13/16 at 23:30 Bisacodyl (Dulcolax Supp) 10 mg DAILY PRN [place] CONSTIPATION; Start 12/13/16 at 23:30 Lactulose (Enulose) 20 gm DAILY PRN PO CONSTIPATION Last administered on 12:26; Admin Dose 20 GM; Start 12/13/16 at 23:30 Clonidine (Catapres) 0.1 mg Q6H PRN PO ELEVATED BLOOD PRESSURE Last administered on 12/21/16 02:48; Admin Dose 0.1 MG; Start 12/14/16 at 01:30 Nifedipine (Procardia Xl) 30 mg BID PO Last administered on 12/22/16 08:54; Admin Dose 30 MG; Start 12/20/16 at 09:00 Ropinirole HCl (Requip) 0.25 mg 18 PO Last administered on 12/21/16 18:00; Admin Dose 0.25 MG; Start 12/21/16 at 18:00 Hydralazine HCl (Apresoline) 25 mg TID PO Last administered on 12/22/16 08:52 ; Admin Dose 25 MG; Start 12/21/16 at 09:00 Assessment/Plan Additional Assessment/Plan rehab-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 Cotninue current plan, with anticipated dc on Wednesday Anemia. Atrial fibrillation. BPH. Duodenal ulcer. Hypertension. Hyperlipidemia. Retinae disorder. Thyroid dysfunction. Dysphagia-continue speech therapy Left lower extremity deep venous thrombosis. JOVANNA JARAMILLO MD Dec 22, 2016 12:06
[2016-12-22 14:00] VITALS: BP 157/70; RESP 18
[2016-12-22] MEDS: ROPINIROLE 0.25 MG TAB PO SCH (17:42)
[2016-12-22 20:00] VITALS: BP 162/70; RESP 18
[2016-12-22] MEDS: ATORVASTATIN 40 MG TAB PO SCH (20:42)
[2016-12-22] MEDS: SENNA TAB PO SCH (20:43)
[2016-12-23 01:50] VITALS: BP 136/70; RESP 18
[2016-12-23] MEDS: PANTOPRAZOLE (EC) 40 MG TAB PO SCH ×2 (06:45→17:49)
[2016-12-23] MEDS: LEVOTHYROXINE 25 MCG TAB PO SCH (06:45)
[2016-12-23 07:10] LABS: BASOPHIL # 0.1 10^3/ul (0.0-0.1); EOSINOPHILS # 0.1 10^3/ul (0.0-0.5); EOSINOPHILS % 2.8 % (0.0-7.0); HEMATOCRIT 29.9 % (42.0-52.0); HEMOGLOBIN 9.9 g/dl (14.0-18.0); LYMPHOCYTES % 24.7 % (15.0-51.0); MEAN CORPUSCULAR HEMOGLOBIN 30.6 pg (29.0-33.0); MEAN CORPUSCULAR HGB CONC 33.1 g/dl (32.0-37.0); MEAN CORPUSCULAR VOLUME 92.3 fl (82.0-101.0); MEAN PLATELET VOLUME 10.5 fl (7.4-10.4); MONOCYTE # 0.6 10^3/ul (0.3-0.9); MONOCYTES % 14.9 % (0.0-11.0); NEUTROPHIL # 2.2 10^3/ul (1.6-7.5); NEUTROPHILS % 55.3 % (39.0-77.0); PLATELET COUNT 181 10^3/UL (140-415); RED BLOOD COUNT 3.24 10^6/ul (4.70-6.10); RED CELL DISTRIBUTION WIDTH 12.3 % (11.5-14.5)
[2016-12-23 07:30] LABS: CALCIUM 8.6 mg/dl (8.4-10.2); CREATININE 2.8 mg/dl (0.61-1.24); MAGNESIUM 2.1 mg/dl (1.7-2.5); PHOSPHORUS 4.7 mg/dl (2.5-4.9); POTASSIUM 4.1 mmol/L (3.5-5.1)
[2016-12-23 08:00] VITALS: BP 170/74; RESP 18
--- NOTE | 2016-12-23 09:00 | PN ---
DATE: 12/23/2016 SUBJECTIVE: The patient is stable. No events overnight. No fevers, chills, nausea, vomiting. OBJECTIVE: VITAL SIGNS: 136/70, respirations 18, pulse 70, temperature 98.6. HEENT: Head is normocephalic. NECK: Supple. HEART: Regular rate. LUNGS: Show diminished breath sounds at base. ABDOMEN: Soft, nontender to palpation. No rebound or guarding. EXTREMITIES: Negative for clubbing, cyanosis. No edema. DERMATOLOGIC: No rashes. MUSCULOSKELETAL: No joint effusions. NEUROLOGIC: No change in exam. MEDICATIONS: The patient's medications have been reviewed. LABORATORY DATA: Shows sodium 139, potassium 4.1, BUN 57, creatinine 2.8. White count 5.9, hemoglo bin 9.9, platelet count is 181. ASSESSMENT AND PLAN: 1. Acute cerebrovascular accident with right-sided weakness. The patient is currently stable and s lowly improving. Continue to monitor. 2. Right upper extremity deep venous thrombosis. Continue Eliquis. 3. Hypertension. Blood pressures are slowly improved. Will adjust blood pressure medications to a void hypotensive episodes. 4. Nonoliguric acute kidney injury on top of chronic kidney disease. The patient's renal function has declined in the last 48 hours. This is likely from hemodynamics and hypotensive episodes. Will monitor renal function closely. 5. Atrial fibrillation, rate controlled. Continue medical management. 6. Chronic kidney disease secondary to hypertensive nephrosclerosis. Continue current medical cristiane gement. Continue current blood pressure regimen. 7. Anemia. Monitor hemoglobin and hematocrit levels. 8. Mineral bone disorder. We calcium and phosphorus levels. 9. Hypothyroidism. Continue Synthroid. 10. Benign prostatic hypertrophy. Continue Proscar. 11. History of breast cancer. 12. Gastrointestinal and deep venous thrombosis prophylaxis. Dictated By: BAM WALKER/SHYANNE Conf#: [id number] DID#: [id number]
[2016-12-23] MEDS: CALCITRIOL 0.25 MCG CAP PO SCH (09:14)
[2016-12-23] MEDS: FINASTERIDE 5 MG TAB PO SCH (09:15)
[2016-12-23] MEDS: NIFEdipine (XL) 30 MG TAB PO SCH ×2 (09:15→20:30)
[2016-12-23] MEDS: DOCUSATE SODIUM 100 MG CAP PO SCH ×2 (09:15→20:29)
[2016-12-23] MEDS: CHOLECALCIFEROL 2,000 UNIT CAP PO SCH (09:15)
[2016-12-23] MEDS: APIXABAN 5 MG TABLET PO SCH ×2 (09:15→20:29)
[2016-12-23] MEDS: HYDROCHLOROTHIAZIDE 12.5 MG CAP PO SCH (09:16)
[2016-12-23] MEDS: ATENOLOL 25 MG TAB PO SCH (09:17)
--- NOTE | 2016-12-23 11:54 | CONS ---
Date/Time of Note Date/Time of Note DATE: 12/23/16 TIME: 11:54 Consult Date/Type/Reason Admit Date/Time Dec 13, 2016 at 19:53 Subjective Doing well Objective pulm-cta sba ambulation Vital Signs Date Time Temp Pulse Resp B/P Pulse Ox O2 Delivery O2 Flow Rate FiO2 12/23/16 08:00 98.6 59 18 170/74 98 12/22/16 07:30 Room Air Intake and Output 12/22/16 12/22/16 12/23/16 15:00 23:00 07:00 Intake Total 80 ml Output Total 1250 ml Balance 80 ml -1250 ml Results/Medications Result Diagram: 12/23/16 0631 12/23/16 0631 Results 24 hrs Laboratory Tests Test 12/23/16 06:31 White Blood Count 4.0 L Red Blood Count 3.24 L Hemoglobin 9.9 L Hematocrit 29.9 L Mean Corpuscular Volume 92.3 Mean Corpuscular Hemoglobin 30.6 Mean Corpuscular Hemoglobin Concent 33.1 Red Cell Distribution Width 12.3 Platelet Count 181 Mean Platelet Volume 10.5 H Neutrophils % 55.3 Lymphocytes % 24.7 Monocytes % 14.9 H Eosinophils % 2.8 Basophils % 2.0 Nucleated Red Blood Cells % 0.0 Neutrophils # 2.2 Lymphocytes # 1.0 Monocytes # 0.6 Eosinophils # 0.1 Basophils # 0.1 Nucleated Red Blood Cells # 0.0 Sodium Level 139 Potassium Level 4.1 Chloride Level 106 Carbon Dioxide Level 26 Anion Gap 11 Blood Urea Nitrogen 57 H Creatinine 2.80 H Glucose Level 91 Calcium Level 8.6 Phosphorus Level 4.7 Magnesium Level 2.1 Medications Current Medications Apixaban (Eliquis) 5 mg BID PO Last administered on 12/23/16 09:15; Admin Dose 5 MG; Start 12/13/16 at 23:59 Hydralazine HCl (Apresoline) 50 mg Q6H PRN PO PRN Last administered on 06:06; Admin Dose 50 MG; Start 12/13/16 at 23:30 Atenolol (Tenormin) 12.5 mg DAILY PO Last administered on 12/23/16 09:17; Admin Dose 12.5 MG; Start 12/14/16 at 09:00 Atorvastatin Calcium (Lipitor) 40 mg DAILY@21 PO Last administered on 20:42; Admin Dose 40 MG; Start 12/13/16 at 23:20 Calcitriol (Rocaltrol) 0.25 mcg DAILY PO Last administered on 12/23/16 09:14; Admin Dose 0.25 MCG; Start 12/14/16 at 09:00 Cholecalciferol (Vitamin D) 2,000 unit DAILY PO Last administered on 12/23/16 09:15; Admin Dose 2,000 UNIT; Start 12/14/16 at 09:00 Docusate Sodium (Colace) 200 mg BID PO Last administered on 12/23/16 09:15; Admin Dose 200 MG; Start 12/13/16 at 23:21 Finasteride (Proscar) 5 mg DAILY PO Last administered on 12/23/16 09:15; Admin Dose 5 MG; Start 12/14/16 at 09:00 Hydrochlorothiazide (Hydrochlorothiazide) 12.5 mg DAILY PO Last administered on 12/23/16 09:16; Admin Dose 12.5 MG; Start 12/14/16 at 09:00 Pantoprazole (Protonix Tab) 40 mg BID@06,18 PO Last administered on 12/23/16 06:45; Admin Dose 40 MG; Start 12/14/16 at 23:23 Senna (Senokot) 1 tab HS PO Last administered on 12/22/16 20:43; Admin Dose 1 TAB; Start 12/13/16 at 23:59 Acetaminophen (Tylenol Tab) 650 mg Q4H PRN PO PAIN; Start 12/13/16 at 23:30 Bisacodyl (Dulcolax Supp) 10 mg DAILY PRN [place] CONSTIPATION; Start 12/13/16 at 23:30 Lactulose (Enulose) 20 gm DAILY PRN PO CONSTIPATION Last administered on 12:26; Admin Dose 20 GM; Start 12/13/16 at 23:30 Nifedipine (Procardia Xl) 30 mg BID PO Last administered on 12/23/16 09:15; Admin Dose 30 MG; Start 12/20/16 at 09:00 Ropinirole HCl (Requip) 0.25 mg 18 PO Last administered on 12/22/16 17:42; Admin Dose 0.25 MG; Start 12/21/16 at 18:00 Hydralazine HCl (Apresoline) 10 mg TID PO Last administered on 12/23/16t 09:23 ; Admin Dose 10 MG; Start 12/23/16 at 09:00 Assessment/Plan Additional Assessment/Plan rehab-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 Excellent progress with anticipated dc on Wednesday Anemia. Atrial fibrillation. BPH. Duodenal ulcer. Hypertension. Hyperlipidemia. Retinae disorder. Thyroid dysfunction. Dysphagia-continue speech therapy Left lower extremity deep venous thrombosis. JOVANNA JARAMILLO MD Dec 23, 2016 11:54
[2016-12-23] MEDS: ROPINIROLE 0.25 MG TAB PO SCH (17:49)
[2016-12-23] MEDS: ATORVASTATIN 40 MG TAB PO SCH (20:30)
[2016-12-23] MEDS: SENNA TAB PO SCH (20:30)
[2016-12-23 20:33] VITALS: BP 168/71; RESP 19
[2016-12-24 02:00] VITALS: BP 150/70; RESP 19
[2016-12-24] MEDS: LEVOTHYROXINE 25 MCG TAB PO SCH (06:51)
[2016-12-24] MEDS: PANTOPRAZOLE (EC) 40 MG TAB PO SCH ×2 (06:52→17:45)
[2016-12-24 07:00] VITALS: BP 170/77; RESP 18
[2016-12-24 07:05] LABS: CALCIUM 8.6 mg/dl (8.4-10.2); CREATININE 2.87 mg/dl (0.61-1.24); POTASSIUM 4.2 mmol/L (3.5-5.1)
[2016-12-24 08:01] VITALS: BP 170/77; PULSE 55; RESP 20
[2016-12-24] MEDS: FINASTERIDE 5 MG TAB PO SCH (08:38)
[2016-12-24] MEDS: DOCUSATE SODIUM 100 MG CAP PO SCH ×2 (08:38→21:05)
[2016-12-24] MEDS: CALCITRIOL 0.25 MCG CAP PO SCH (08:38)
[2016-12-24] MEDS: APIXABAN 5 MG TABLET PO SCH ×2 (08:38→21:05)
[2016-12-24] MEDS: CHOLECALCIFEROL 2,000 UNIT CAP PO SCH (08:39)
[2016-12-24] MEDS: HYDROCHLOROTHIAZIDE 12.5 MG CAP PO SCH (08:39)
[2016-12-24] MEDS: NIFEdipine (XL) 30 MG TAB PO SCH (08:39)
[2016-12-24] MEDS: ATENOLOL 25 MG TAB PO SCH (08:40)
--- NOTE | 2016-12-24 09:24 | CONS ---
Date/Time of Note Date/Time of Note DATE: 12/24/16 TIME: 09:23 Consult Date/Type/Reason Admit Date/Time Dec 13, 2016 at 19:53 Objective Lungs clear abdomen soft Standby assist ambulation Vital Signs Date Time Temp Pulse Resp B/P Pulse Ox O2 Delivery O2 Flow Rate FiO2 12/24/16 08:01 98.9 55 20 170/77 97 Room Air Intake and Output 12/23/16 12/23/16 12/24/16 14:59 22:59 06:59 Intake Total 500 ml 1200 ml 360 ml Output Total 800 ml 1700 ml Balance 500 ml 400 ml -1340 ml Results/Medications Result Diagram: 12/23/16 0631 12/24/16 0614 Results 24 hrs Laboratory Tests Test 12/24/16 06:14 Sodium Level 141 Potassium Level 4.2 Chloride Level 105 Carbon Dioxide Level 27 Anion Gap 13 Blood Urea Nitrogen 56 H Creatinine 2.87 H Glucose Level 94 Calcium Level 8.6 Medications Current Medications Apixaban (Eliquis) 5 mg BID PO Last administered on 12/24/16 08:38; Admin Dose 5 MG; Start 12/13/16 at 23:59 Hydralazine HCl (Apresoline) 50 mg Q6H PRN PO PRN Last administered on 06:06; Admin Dose 50 MG; Start 12/13/16 at 23:30 Atenolol (Tenormin) 12.5 mg DAILY PO Last administered on 12/24/16 08:40; Admin Dose 12.5 MG; Start 12/14/16 at 09:00 Atorvastatin Calcium (Lipitor) 40 mg DAILY@21 PO Last administered on 20:30; Admin Dose 40 MG; Start 12/13/16 at 23:20 Calcitriol (Rocaltrol) 0.25 mcg DAILY PO Last administered on 12/24/16 08:38; Admin Dose 0.25 MCG; Start 12/14/16 at 09:00 Cholecalciferol (Vitamin D) 2,000 unit DAILY PO Last administered on 12/24/16 08:39; Admin Dose 2,000 UNIT; Start 12/14/16 at 09:00 Docusate Sodium (Colace) 200 mg BID PO Last administered on 12/24/16 08:38; Admin Dose 200 MG; Start 12/13/16 at 23:21 Finasteride (Proscar) 5 mg DAILY PO Last administered on 12/24/16 08:38; Admin Dose 5 MG; Start 12/14/16 at 09:00 Hydrochlorothiazide (Hydrochlorothiazide) 12.5 mg DAILY PO Last administered on 12/24/16 08:39; Admin Dose 12.5 MG; Start 12/14/16 at 09:00 Pantoprazole (Protonix Tab) 40 mg BID@06,18 PO Last administered on 12/24/16 06:52; Admin Dose 40 MG; Start 12/14/16 at 23:23 Senna (Senokot) 1 tab HS PO Last administered on 12/23/16 20:30; Admin Dose 1 TAB; Start 12/13/16 at 23:59 Acetaminophen (Tylenol Tab) 650 mg Q4H PRN PO PAIN; Start 12/13/16 at 23:30 Bisacodyl (Dulcolax Supp) 10 mg DAILY PRN [place] CONSTIPATION; Start 12/13/16 at 23:30 Lactulose (Enulose) 20 gm DAILY PRN PO CONSTIPATION Last administered on 12:26; Admin Dose 20 GM; Start 12/13/16 at 23:30 Ropinirole HCl (Requip) 0.25 mg 18 PO Last administered on 12/23/16 17:49; Admin Dose 0.25 MG; Start 12/21/16 at 18:00 Hydralazine HCl (Apresoline) 10 mg TID PO Last administered on 12/24/16 08:38 ; Admin Dose 10 MG; Start 12/23/16 at 21:00 Nifedipine (Procardia Xl) 60 mg DAILY PO ; Start 12/24/16 at 21:00 Assessment/Plan Additional Assessment/Plan rehab-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 Working towards home Wednesday Anemia. Atrial fibrillation. BPH. Duodenal ulcer. Hypertension. Hyperlipidemia. Retinae disorder. Thyroid dysfunction. Dysphagia-continue speech therapy Left lower extremity deep venous thrombosis. JOVANNA JARAMILLO MD Dec 24, 2016 09:24
--- NOTE | 2016-12-24 09:34 | PN ---
DATE: 12/24/2016 SUBJECTIVE: The patient is stable. No events overnight. OBJECTIVE: VITAL SIGNS: Blood pressure is 170/77, pulse 50, temperature 98.9, respirations 20. HEENT: Head is normocephalic. NECK: Supple. HEART: Regular rate. LUNGS: Show diminished breath sounds at the base. ABDOMEN: Soft, nontender to palpation. No rebound or guarding. EXTREMITIES: Negative for clubbing, cyanosis, no edema. DERMATOLOGIC: No rashes. MUSCULOSKELETAL: No joint effusions. NEUROLOGIC: No change in exam. MEDICATIONS: The patient's medications have been reviewed. LABORATORY DATA: Shows sodium 141, potassium 4.2, chloride 105, BUN 56, creatinine 2.87. ASSESSMENT AND PLAN: 1. Acute cerebrovascular accident with right-sided weakness. The patient is currently stable and s lowly improving. Continue to monitor. 2. Right upper extremity deep venous thrombosis. Continue Eliquis. 3. Hypertension. Blood pressure continues to fluctuate. Medications are being adjusted. We will up titrate hydralazine again to 20 mg t.i.d. 4. We will continue Procardia. Continue atenolol. Continue hydrochlorothiazide. 5. Nonoliguric acute kidney injury on top of chronic kidney disease. Renal function has declined o nasim the last 3-4 days. This may be due to tubular injury due to hemodynamic fluctuations. We will continue to monitor renal panel. Repeat a urinalysis with microanalysis. 6. Atrial fibrillation, currently rate controlled. Continue medical management. 7. Chronic kidney disease. Etiology is secondary to hypertensive nephrosclerosis, possible renal a rterial hypertension. We will check a renal ultrasound. 8. Anemia. Monitor hemoglobin and hematocrit levels. 9. Mineral bone disorder. Monitor calcium and phosphorus levels. 10. Hypothyroidism. Continue Synthroid. 11. Benign prostatic hypertrophy. Continue Proscar. 12. History of breast cancer. 13. Gastrointestinal and deep venous thrombosis prophylaxis. Dictated By: BAM WALKER/SHYANNE Conf#: [id number] DID#: [id number]
[2016-12-24 14:22] LABS: ADD UMIC YES; UR ASCORBIC ACID NEGATIVE (NEGATIVE); UR BILIRUBIN (Dip) NEGATIVE (NEGATIVE); UR BLOOD (Dip) NEGATIVE (NEGATIVE); UR CLARITY CLEAR (CLEAR); UR COLOR YELLOW (YELLOW); UR GLUCOSE (Dip) NEGATIVE (NEGATIVE); UR KETONES (Dip) NEGATIVE (NEGATIVE); UR LEUKOCYTE ESTERASE (Dip) NEGATIVE Leu/ul (NEGATIVE); UR NITRITE (Dip) NEGATIVE (NEGATIVE); UR RBC 1 /HPF (0-5); UR SPECIFIC GRAVITY (Dip) 1.011 (1.003-1.030); UR TOTAL PROTEIN (Dip) 2+ mg/dl (NEGATIVE); UR UROBILINOGEN (Dip) NEGATIVE (NEGATIVE)
--- NOTE | 2016-12-24 17:34 | RADRPT ---
PROCEDURE: Renal US. CLINICAL INDICATION: Acute kidney injury. TECHNIQUE: Multiple sonographic images of the kidneys and urinary bladder were obtained. The imag es were reviewed on a PACS workstation. COMPARISON: No prior studies are available for comparison. FINDINGS: The right kidney measures 9.9 cm. The left kidney measures 7.5 cm. There is no solid renal mass. There are benign right renal cysts with the largest superiorly measuri ng 4.5 x 2.4 x 2.5 cm. There is a small cyst superiorly in the left kidney. There is no right hydronephrosis. There is mild left hydronephrosis with no obstructing lesion visua lized. There is no renal calculus. Renal parenchymal thickness is normal bilaterally. Both kidneys are hyperechoic consistent with medical renal disease. The perirenal regions are normal with no fluid collection or mass. The prostate is enlarged with a volume of 60 cc. The bladder is empty. IMPRESSION: 1. Benign bilateral renal cysts. 2. No right hydronephrosis. 3. Mild left hydronephrosis with no obstructing lesion visualized. 4. Bilateral hyperechoic kidneys consistent with medical renal disease. 5. Enlarged prostate. RPTAT: QQ .Phil Littlejohn MD, MD Date Time Electronically viewed and signed by .Phil Littlejohn MD, on 12/24/2016 17:34 .R/
[2016-12-24] MEDS: ROPINIROLE 0.25 MG TAB PO SCH (17:45)
[2016-12-24 19:30] VITALS: BP 165/70; RESP 18
[2016-12-24] MEDS: SENNA TAB PO SCH (21:05)
[2016-12-24] MEDS: ATORVASTATIN 40 MG TAB PO SCH (21:05)
[2016-12-24] MEDS: T PO SCH (21:13)
[2016-12-25 03:11] VITALS: BP 164/78; RESP 19
[2016-12-25 05:00] VITALS: BP 155/78; PULSE 55
[2016-12-25] MEDS: LEVOTHYROXINE 25 MCG TAB PO SCH (06:03)
[2016-12-25] MEDS: PANTOPRAZOLE (EC) 40 MG TAB PO SCH ×2 (06:03→18:42)
[2016-12-25 07:10] LABS: CALCIUM 8.6 mg/dl (8.4-10.2); CREATININE 2.89 mg/dl (0.61-1.24); MAGNESIUM 2.2 mg/dl (1.7-2.5); PHOSPHORUS 4.4 mg/dl (2.5-4.9); POTASSIUM 4.1 mmol/L (3.5-5.1)
[2016-12-25 07:30] VITALS: BP 182/79; RESP 18
[2016-12-25] MEDS: ATENOLOL 25 MG TAB PO SCH (08:59)
[2016-12-25] MEDS: CALCITRIOL 0.25 MCG CAP PO SCH (08:59)
[2016-12-25] MEDS: T PO SCH (08:59)
[2016-12-25] MEDS: FINASTERIDE 5 MG TAB PO SCH (09:00)
[2016-12-25] MEDS: HYDROCHLOROTHIAZIDE 12.5 MG CAP PO SCH ×2 (09:00→09:01)
[2016-12-25] MEDS: DOCUSATE SODIUM 100 MG CAP PO SCH ×2 (09:00→20:31)
[2016-12-25] MEDS: APIXABAN 5 MG TABLET PO SCH ×2 (09:01→20:31)
[2016-12-25] MEDS: CHOLECALCIFEROL 2,000 UNIT CAP PO SCH (09:01)
--- NOTE | 2016-12-25 09:47 | PN ---
DATE: 12/25/2016 OBJECTIVE: VITAL SIGNS: Blood pressure is 182/79, respirations 18, pulse 50, temperature 98.9. HEENT: Head is normocephalic. NECK: Supple. HEART: Regular rate. LUNGS: Show diminished breath sounds at the base. ABDOMEN: Soft, nontender to palpation. No rebound or guarding. EXTREMITIES: Negative for clubbing, cyanosis, no edema. DERMATOLOGIC: No rashes. MUSCULOSKELETAL: No joint effusions. NEUROLOGIC: No change in exam. MEDICATIONS: The patient's medications have been reviewed. LABORATORY DATA: Shows sodium 140, potassium 4.1, BUN 63, creatinine 2.89. Urinalysis shows a FENa of approximately 1%, proteinuria 1 gram, no active urinary sediment. Renal ultrasound shows mild l eft hydronephrosis, no obstructing lesion, bilateral echogenic kidneys, no right hydronephrosis and a large prostate. ASSESSMENT AND PLAN: 1. Acute cerebrovascular accident with right-sided weakness. The patient is clinically improving. Continue to monitor. 2. Right upper extremity deep venous thrombosis. Continue Eliquis. 3. Hypertension. Blood pressure remains elevated. Will continue to adjust blood pressure medicati ons. Patient's Procardia was increased to 60 mg b.i.d. We will up titrate hydralazine to 20 mg t.i. d. Continue atenolol, Hydrochlorothiazide. 4. Nonoliguric acute kidney injury on top of chronic kidney disease. Etiology is secondary to hemo dynamics. The patient's urinalysis is bland. At this point, would continue current treatment plan. The patient's renal ultrasound also showed findings consistent with medical renal disease, no hydr oureteronephrosis. We will continue to monitor. Continue current treatment plan, supportive care, renally dose medications. 5. Atrial fibrillation, rate controlled. Continue medical management. 6. Chronic kidney disease. Continue current treatment plan as stated above. 7. Anemia. Monitor hemoglobin and hematocrit levels. 8. Mineral bone disorder. Monitor calcium and phosphorus levels. 9. Hypothyroidism. Continue Synthroid. 10. Benign prostatic hypertrophy. Continue Proscar. 11. History of breast cancer. 12. Gastrointestinal and deep venous thrombosis prophylaxis. Dictated By: BAM WALKER/SHYANNE Conf#: [id number] DID#: [id number]
--- NOTE | 2016-12-25 10:58 | CONS ---
Date/Time of Note Date/Time of Note DATE: 12/25/16 TIME: 10:57 Consult Date/Type/Reason Admit Date/Time Dec 13, 2016 at 19:53 Subjective No new complaints Objective Lungs clear abdomen soft Supervised ambulation Vital Signs Date Time Temp Pulse Resp B/P Pulse Ox O2 Delivery O2 Flow Rate FiO2 12/25/16 07:30 98.9 50 18 182/79 97 12/24/16 08:01 Room Air Intake and Output 12/24/16 12/24/16 12/25/16 15:00 23:00 07:00 Intake Total 1600 ml Output Total 800 ml Balance 1600 ml -800 ml Results/Medications Result Diagram: 12/23/16 0631 12/25/16 0558 Results 24 hrs Laboratory Tests Test 12/24/16 13:30 12/25/16 05:58 Urine Color YELLOW Urine Clarity CLEAR Urine pH 5.0 Urine Specific [place] 1.011 Urine Ketones NEGATIVE Urine Nitrite NEGATIVE Urine Bilirubin NEGATIVE Urine Urobilinogen NEGATIVE Urine Leukocyte Esterase NEGATIVE Urine Microscopic RBC 1 Urine Microscopic WBC 0 Urine Hemoglobin NEGATIVE Urine Random Creatinine 95.32 Urine Random Sodium 30 Urine Glucose NEGATIVE Urine Total Protein 92.0 H Sodium Level 140 Potassium Level 4.1 Chloride Level 105 Carbon Dioxide Level 26 Anion Gap 13 Blood Urea Nitrogen 63 H Creatinine 2.89 H Glucose Level 91 Calcium Level 8.6 Phosphorus Level 4.4 Magnesium Level 2.2 Medications Current Medications Apixaban (Eliquis) 5 mg BID PO Last administered on 12/25/16 09:01; Admin Dose 5 MG; Start 12/13/16 at 23:59 Hydralazine HCl (Apresoline) 50 mg Q6H PRN PO PRN Last administered on 06:06; Admin Dose 50 MG; Start 12/13/16 at 23:30 Atenolol (Tenormin) 12.5 mg DAILY PO Last administered on 12/25/16 08:59; Admin Dose 12.5 MG; Start 12/14/16 at 09:00 Atorvastatin Calcium (Lipitor) 40 mg DAILY@21 PO Last administered on 21:05; Admin Dose 40 MG; Start 12/13/16 at 23:20 Calcitriol (Rocaltrol) 0.25 mcg DAILY PO Last administered on 12/25/16 08:59 ; Admin Dose 0.25 MCG; Start 12/14/16 at 09:00 Cholecalciferol (Vitamin D) 2,000 unit DAILY PO Last administered on 09:01; Admin Dose 2,000 UNIT; Start 12/14/16 at 09:00 Docusate Sodium (Colace) 200 mg BID PO Last administered on 12/25/16 09:00; Admin Dose 200 MG; Start 12/13/16 at 23:21 Finasteride (Proscar) 5 mg DAILY PO Last administered on 12/25/16 09:00; Admin Dose 5 MG; Start 12/14/16 at 09:00 Hydrochlorothiazide (Hydrochlorothiazide) 12.5 mg DAILY PO Last administered on 12/25/16 09:01; Admin Dose 12.5 MG; Start 12/14/16 at 09:00 Pantoprazole (Protonix Tab) 40 mg BID@06,18 PO Last administered on 12/25/16 06:03; Admin Dose 40 MG; Start 12/14/16 at 23:23 Senna (Senokot) 1 tab HS PO Last administered on 12/24/16 21:05; Admin Dose 1 TAB; Start 12/13/16 at 23:59 Acetaminophen (Tylenol Tab) 650 mg Q4H PRN PO PAIN; Start 12/13/16 at 23:30 Bisacodyl (Dulcolax Supp) 10 mg DAILY PRN [place] CONSTIPATION; Start 12/13/16 at 23:30 Lactulose (Enulose) 20 gm DAILY PRN PO CONSTIPATION Last administered on 12:26; Admin Dose 20 GM; Start 12/13/16 at 23:30 Ropinirole HCl (Requip) 0.25 mg 18 PO Last administered on 12/24/16 17:45; Admin Dose 0.25 MG; Start 12/21/16 at 18:00 Nifedipine (Procardia Xl) 60 mg DAILY PO Last administered on 12/25/16 08:59 ; Admin Dose 60 MG; Start 12/24/16 at 21:00 Hydralazine HCl (Apresoline) 20 mg TID PO ; Start 12/25/16 at 09:00 Assessment/Plan Additional Assessment/Plan rehab-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 Working towards home tomorrow Anemia. Atrial fibrillation. BPH. Duodenal ulcer. Hypertension. Hyperlipidemia. Retinae disorder. Thyroid dysfunction. Dysphagia-continue speech therapy Left lower extremity deep venous thrombosis. JOVANNA JARAMILLO MD Dec 25, 2016 10:57
[2016-12-25] MEDS ORDERED: BETAMETHASONE/CLOTRIMAZOLE 15 GM CR TOP ONE (15:30)
[2016-12-25] MEDS: ROPINIROLE 0.25 MG TAB PO SCH (18:42)
[2016-12-25] MEDS: BETAMETHASONE/CLOTRIMAZOLE 15 GM CR TOP SCH (18:45)
[2016-12-25 20:00] VITALS: BP 145/68; RESP 18
[2016-12-25] MEDS: SENNA TAB PO SCH (20:30)
[2016-12-25] MEDS: ATORVASTATIN 40 MG TAB PO SCH (20:30)
[2016-12-26 02:00] VITALS: BP 140/72; RESP 18
[2016-12-26] MEDS: LEVOTHYROXINE 25 MCG TAB PO SCH (06:14)
[2016-12-26] MEDS: PANTOPRAZOLE (EC) 40 MG TAB PO SCH (06:14)
[2016-12-26 07:30] VITALS: BP 178/80; RESP 20
--- NOTE | 2016-12-26 08:24 | CONS ---
Date/Time of Note Date/Time of Note DATE: 12/26/16 TIME: 08:22 Consult Date/Type/Reason Admit Date/Time Dec 13, 2016 at 19:53 Initial Consult Date Subjective 86-year-old male with a past medical history of chronic kidney disease, history of hypertension, history of BPH who presented to [facility] with complaints of right upper extremity weakness. The patient, upon presentation, was noted to have a persistent right hemiparesis, greater weakness in right upper extremity than lower. The patient was admitted to [facility]. Neurologic workup included MRI which revealed multiple lacunar type infarcts of the focal area, acute infarct in the left parietal region with a restricted diffusion. The patient was seen inpatient by a neurologist. The patient also, in hospital course, noted to have acute kidney injury on top of his underlying CKD and was followed by nephrology. The patient, during the hospital course, also noted to have a DVT of his lower extremity, he was placed on anticoagulation therapy. The patient was seen by oncology in the inpatient setting. Tamoxifen, which he had been taking for his underlying breast cancer, was discontinued. The patient, however, had a significant decrease in premorbid state prior to his admission, as a result was being transferred to [facility] for continued care. Tolerating meds and therapies without complication poc reviewed with dr. tse. Objective Vital Signs Date Time Temp Pulse Resp B/P Pulse Ox O2 Delivery O2 Flow Rate FiO2 12/26/16 02:00 98.3 68 18 140/72 94 12/24/16 08:01 Room Air Intake and Output 12/25/16 12/25/16 12/26/16 15:00 23:00 07:00 Intake Total 300 ml 800 ml 1050 ml Output Total 1000 ml Balance 300 ml 800 ml 50 ml Exam HEENT: Head is normocephalic. NECK: Supple. HEART: Regular rate. LUNGS: Show diminished breath sounds at the base. ABDOMEN: Soft, nontender to palpation. No rebound or guarding. EXTREMITIES: Negative for clubbing, cyanosis, no edema. DERMATOLOGIC: No rashes. MUSCULOSKELETAL: No joint effusions. NEUROLOGIC: No change in exam. MEDICATIONS: The patient's medications have been reviewed. Results/Medications Result Diagram: 12/23/16 0631 12/25/16 0558 Medications Current Medications Apixaban (Eliquis) 5 mg BID PO Last administered on 12/25/16 20:31; Admin Dose 5 MG; Start 12/13/16 at 23:59 Hydralazine HCl (Apresoline) 50 mg Q6H PRN PO PRN Last administered on 06:06; Admin Dose 50 MG; Start 12/13/16 at 23:30 Atenolol (Tenormin) 12.5 mg DAILY PO Last administered on 12/25/16 08:59; Admin Dose 12.5 MG; Start 12/14/16 at 09:00 Atorvastatin Calcium (Lipitor) 40 mg DAILY@21 PO Last administered on 20:30; Admin Dose 40 MG; Start 12/13/16 at 23:20 Calcitriol (Rocaltrol) 0.25 mcg DAILY PO Last administered on 12/25/16 08:59 ; Admin Dose 0.25 MCG; Start 12/14/16 at 09:00 Cholecalciferol (Vitamin D) 2,000 unit DAILY PO Last administered on 09:01; Admin Dose 2,000 UNIT; Start 12/14/16 at 09:00 Docusate Sodium (Colace) 200 mg BID PO Last administered on 12/25/16 20:31; Admin Dose 200 MG; Start 12/13/16 at 23:21 Finasteride (Proscar) 5 mg DAILY PO Last administered on 12/25/16 09:00; Admin Dose 5 MG; Start 12/14/16 at 09:00 Hydrochlorothiazide (Hydrochlorothiazide) 12.5 mg DAILY PO Last administered on 12/25/16 09:01; Admin Dose 12.5 MG; Start 12/14/16 at 09:00 Pantoprazole (Protonix Tab) 40 mg BID@06,18 PO Last administered on 12/26/16 06:14; Admin Dose 40 MG; Start 12/14/16 at 23:23 Senna (Senokot) 1 tab HS PO Last administered on 12/25/16 20:30; Admin Dose 1 TAB; Start 12/13/16 at 23:59 Acetaminophen (Tylenol Tab) 650 mg Q4H PRN PO PAIN; Start 12/13/16 at 23:30 Bisacodyl (Dulcolax Supp) 10 mg DAILY PRN [place] CONSTIPATION; Start 12/13/16 at 23:30 Lactulose (Enulose) 20 gm DAILY PRN PO CONSTIPATION Last administered on 12:26; Admin Dose 20 GM; Start 12/13/16 at 23:30 Ropinirole HCl (Requip) 0.25 mg 18 PO Last administered on 12/25/16 18:42; Admin Dose 0.25 MG; Start 12/21/16 at 18:00 Nifedipine (Procardia Xl) 60 mg DAILY PO Last administered on 12/25/16 08:59 ; Admin Dose 60 MG; Start 12/24/16 at 21:00 Hydralazine HCl (Apresoline) 20 mg TID PO Last administered on 12/25/16 20:31 ; Admin Dose 20 MG; Start 12/25/16 at 09:00 Betamethasone/ Clotrimazole (Lotrisone Cr) 1 applic DAILY TOP Last administered on 12/25/16 18:45; Admin Dose 1 APPLIC; Start 12/25/16 at 17:30 Assessment/Plan Chief Complaint/Hosp Course 1. Acute cerebrovascular accident with right-sided weakness. The patient is clinically improving. Continue to monitor. 2. Right upper extremity deep venous thrombosis. Continue Eliquis. 3. Hypertension. Blood pressure remains elevated. Will continue to adjust blood pressure medications. Patient's Procardia was increased to 60 mg b.i.d. We will up titrate hydralazine to 20 mg t.i.d. Continue atenolol, Hydrochlorothiazide. 4. Nonoliguric acute kidney injury on top of chronic kidney disease. Etiology is secondary to hemodynamics. The patient's urinalysis is bland. At this point , would continue current treatment plan. The patient's renal ultrasound also showed findings consistent with medical renal disease, no hydroureteronephrosis. We will continue to monitor. Continue current treatment plan, supportive care, renally dose medications. 5. Atrial fibrillation, rate controlled. Continue medical management. 6. Chronic kidney disease. Continue current treatment plan as stated above. 7. Anemia. Monitor hemoglobin and hematocrit levels. 8. Mineral bone disorder. Monitor calcium and phosphorus levels. 9. Hypothyroidism. Continue Synthroid. 10. Benign prostatic hypertrophy. Continue Proscar. 11. History of breast cancer. 12. Gastrointestinal and deep venous thrombosis prophylaxis. Problems: FARAHMANDIAN,EVITA MD Dec 26, 2016 08:24
[2016-12-26] MEDS: CALCITRIOL 0.25 MCG CAP PO SCH (08:55)
[2016-12-26] MEDS: ATENOLOL 25 MG TAB PO SCH (08:56)
[2016-12-26] MEDS: CHOLECALCIFEROL 2,000 UNIT CAP PO SCH (08:57)
[2016-12-26] MEDS: FINASTERIDE 5 MG TAB PO SCH (08:57)
[2016-12-26] MEDS: HYDROCHLOROTHIAZIDE 12.5 MG CAP PO SCH (08:57)
[2016-12-26] MEDS: APIXABAN 5 MG TABLET PO SCH (08:58)
[2016-12-26] MEDS: DOCUSATE SODIUM 100 MG CAP PO SCH (08:58)
[2016-12-26] MEDS: T PO SCH (08:58)
[2016-12-26] MEDS: BETAMETHASONE/CLOTRIMAZOLE 15 GM CR TOP SCH (09:00)
--- NOTE | 2016-12-26 09:18 | DS ---
Date/Time of Note Date/Time of Note DATE: 12/26/16 TIME: Discharge Summary Admission/Discharge Info Admit Date/Time Dec 13, 2016 at 19:53 Discharge Date/Time Discharge Diagnosis 1. 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 2. Atrial fibrillation. 3. BPH. 4. Duodenal ulcer. 5. Hypertension. 6. Hyperlipidemia. 7. Retinae disorder. 8. Thyroid dysfunction. 9. Dysphagia. 10. Left lower extremity deep venous thrombosis. 11. Improvements in self-care, mobility and cognition. Patient Condition: Good Hospital Course Patient was admitted for comprehensive interdisciplinary acute rehabilitation. Patient made steady functional gains and improved from a mod level to a Supervised level for self care and mobility, including ambulating over 150 feet with the use of a front wheeled walker. Patient is being discharged home with recommendations for home health PT and OT follow up. DME recommendations: FWW; BSC; Shower Chair Patient will follow up with PMD upon DC. Primary Care Provider JOVANNA Membreno MD Dec 26, 2016 09:18
== END 2016-12-26 10:00 | disposition home health service (06) | DRG 57 ==
LOC: VRC 19:53
PROVIDERS: ADMIT Internal Medicine; ATTEND Internal Medicine
PROC: F08Z0ZZ Bathing/Showering Techniques Treatment (ICD-10-PCS; principal; 2016-12-13)
PROC: F07Z5ZZ Bed Mobility Treatment (ICD-10-PCS; 2016-12-13)
PROC: F06Z6ZZ Communicative/Cognitive Integration Skills Treatment (ICD-10-PCS; 2016-12-13)
DX: I69.351 Hemiplegia and hemiparesis following cerebral infarction affecting right dominant side (principal); N17.9 Acute kidney failure, unspecified; D69.6 Thrombocytopenia, unspecified; I82.492 Acute embolism and thrombosis of other specified deep vein of left lower extremity; I48.91 Unspecified atrial fibrillation; K26.9 Duodenal ulcer, unspecified as acute or chronic, without hemorrhage or perforation; R13.10 Dysphagia, unspecified; I69.391 Dysphagia following cerebral infarction; N40.0 Benign prostatic hyperplasia without lower urinary tract symptoms; E78.5 Hyperlipidemia, unspecified; E03.9 Hypothyroidism, unspecified; I12.9 Hypertensive chronic kidney disease with stage 1 through stage 4 chronic kidney disease, or unspecified chronic kidney disease; N18.9 Chronic kidney disease, unspecified; D64.9 Anemia, unspecified; Z85.3 Personal history of malignant neoplasm of breast; Z90.10 Acquired absence of unspecified breast and nipple; D72.819 Decreased white blood cell count, unspecified; H35.89 Other specified retinal disorders
CPT/HCPCS: 76775; 80048; 80053; 81001; 81003; 82043; 83735; 84100; 84155; 84300; 85025; 87081; 87086; 92507; 92526; 92610; 93970; 93971; 97110; 97112; 97116; 97150; 97163; 97167; 97530; 97535